=== PATIENT | female | born 1990 | race Caucasian/White ===

== ENCOUNTER 2019-11-22 20:07 | Emergency (ER) | payer BC, SELFPAY ==
[2019-11-22 20:28] VITALS: BP 106/63; PULSE 85; RESP 16; O2SAT 96; BMI 20.7
[2019-11-22 20:30] VITALS: BP 106/63; PULSE 85; RESP 16; TEMP 36.8; O2SAT 96; BMI 20.7
--- NOTE | 2019-11-22 20:40 | HMH.EDUTC ---
[facility] [place] Disposition Clinical Impression: Tension headache Heat exhaustion Qualifiers: Encounter type: initial encounter Qualified Code(s): T67.5XXA - Heat exhaustion, unspecified, initial encounter Disposition: Home, Self-Care Condition on Discharge: Good Instructions: Tension Headache, DI for Hormonal and Tension Headaches Additional Instructions: Go home and rest. Drink plenty of cool fluids. Water or Gatorade would be best. Take the medications for headache if it continues. You need to follow up with a primary care doctor. We will give you a list of ones that are taking new patients. GO TO THE ER FOR ANY WORSENING SYMPTOMS OR CONCERNS Prescriptions: Ibuprofen [Ibuprofen 600mg Tablet] 600 mg PO Q6HP PRN #30 tab PRN Reason: Mild Pain Transmission Status: Received by [facility] #[id number] Ondansetron [Zofran 4mg ODT] 4 mg PO Q8HP PRN #10 tab.rapdis PRN Reason: Nausea Transmission Status: Received by [facility] #[id number] Cetirizine HCl [Zyrtec] 10 mg PO DAILY 30 Days #30 cap Transmission Status: Received by [facility] #[id number] Referrals: Provider,Referral, MD [Primary Care Provider] - Time of Disposition: 20:49 Medical Decision Making - Medical Records Medical records reviewed: No: I reviewed the patient's medical records. - Chirag Inquiry Pt receiving controlled substance: No Vital Signs: 11/22/19 20:28 11/22/19 20:30 11/22/19 20:46 Temperature 98.3 F 98.3 F Temperature Source Oral Pulse Rate 85 Pulse Rate [Right Brachial] 85 85 Respiratory Rate 16 16 16 Blood Pressure 106/63 L Blood Pressure [Right Arm] 106/63 L 106/63 L Blood Pressure Mean [Right Arm] 77 77 Blood Pressure Source [Right Arm] Automatic Cuff Automatic Cuff Blood Pressure Position [Right Arm] Sitting Sitting 02 Sat by Pulse Oximetry 96 96 Oxygen Delivery Method Room Air Room Air [facility] [place] HPI - General Stated complaint: headache mouth tingling Time Seen by Provider: 11/22/19 20:40 Mode of Arrival: Ambulatory Source of Information: Patient Limitations: No Limitations Description of Symptoms (Recalled from Triage Doc. by RN): PATIENT STATES SHE HAS WOKEN UP NUMEROUS TIMES OVER THE PAST 2 MONTHS WITH A SEVERE HEADACHE. STATES THAT RECENTLY SHE HAS HAD NAUSEA AND SHAKINESS WITH HER HEADACHES. SHE SAYS TODAY SHE ALSO DEVELOPED TINGLING TO HER UPPER LIP. PATIENT APPEARS SHAKY AND ANXIOUS AT THIS TIME. SHE STATES SHE HAS NOT SEEN ANY ONE FOR THIS PROBLEM HEENT Symptoms (Recalled from RN notes): Yes Resp Symptoms (Recalled from RN notes): No Skin Symptoms (Recalled from RN notes): No MS Symptoms (Recalled from RN notes): No Functional Status (Recalled from RN notes): WNL - History of Present Illness Provider Complaint: She states that over the past 2 months approx., she has been having frequent headaches. At times she wakes up with a headache. She has had a headache all day today. She denies that the pain is severe. She denies that it is the worst headache of her life. She describes it as a pressure feeling across her forehead. She denies any vision changes. She was having some nausea at home, but since she has got here that has resolved. She states that before she came in today, she was also having some tingling around her upper lip. She denies any hyperventilation around this time, but she has been having more anxiety than normal. She states that she worked outside all day in her yard spreading mulch and planting walters. - Related Data Home Medications Medication Instructions Recorded Confirmed sertraline 100 mg tablet 100 mg PO DAILY tab 07/06/19 11/22/19 Etonogestrel/Ethinyl Estradiol 1 each VG ONCE 11/22/19 11/22/19 [Eluryng Vaginal Ring] Previous Rx's Medication Instructions Recorded Cetirizine HCl [Zyrtec] 10 mg PO DAILY 30 Days #30 cap 11/22/19 Ibuprofen [Ibuprofen 600mg 600 mg PO Q6HP PRN #30 tab 11/22/19 Tablet] Ondansetron [Zofran 4mg ODT
[2019-11-22 20:46] VITALS: BP 106/63; PULSE 85; RESP 16; TEMP 36.8; O2SAT 96
== END 2019-11-22 20:54 | disposition home or self-care (01) ==
PROVIDERS: Emergency Provider Nurse Practitioner Family
DX: G44.209 Tension-type headache, unspecified, not intractable (principal); T67.5XXA Heat exhaustion, unspecified, initial encounter; F17.210 Nicotine dependence, cigarettes, uncomplicated
CPT/HCPCS: 99201

== ENCOUNTER 2020-07-07 17:08 | Emergency (ER) | payer MEDICAID, SELFPAY ==
[2020-07-07 17:09] VITALS: BP 121/62; PULSE 83; RESP 14; TEMP 36.4; O2SAT 99; BMI 25.0
--- NOTE | 2020-07-07 17:34 | HMH.EDUTC ---
[facility] [place] Disposition Clinical Impression: Exposure to COVID-19 virus Disposition: Home, Self-Care Condition on Discharge: Good Instructions: DI for COVID-19 (Suspected or Confirmed ), Preventing the Spread of Coronavirus Discharge Instructions Additional Instructions: Drink plenty of fluids. Take tylenol or ibuprofen for pain or fever. Take the medications as directed. Follow up with your regular doctor. GO TO THE ER FOR ANY WORSENING SYMPTOMS Referrals: PCP,No [Primary Care Provider] - Time of Disposition: 17:37 Medical Decision Making - Medical Records Medical records reviewed: No: I reviewed the patient's medical records. - Chirag Inquiry Pt receiving controlled substance: No Vital Signs: 07/07/20 17:09 07/07/20 17:40 Temperature 97.5 F L 97.5 F L Temperature Source Oral Oral Pulse Rate 83 Pulse Rate [Right] 83 Respiratory Rate 14 14 Blood Pressure 121/62 Blood Pressure [Right Arm] 121/62 Blood Pressure Mean [Right Arm] 81 02 Sat by Pulse Oximetry 99 [facility] [place] HPI - General Stated complaint: COVID Test has been exposed Time Seen by Provider: 07/07/20 17:34 Mode of Arrival: Ambulatory Source of Information: Patient Limitations: No Limitations Description of Symptoms (Recalled from Triage Doc. by RN): pt request COVID test pt has no symptoms HEENT Symptoms (Recalled from RN notes): No Resp Symptoms (Recalled from RN notes): No Skin Symptoms (Recalled from RN notes): No MS Symptoms (Recalled from RN notes): No Functional Status (Recalled from RN notes): wnl - History of Present Illness Provider Complaint: She states that she was exposed to covid last week. She denies any symptoms so far. - Related Data Home Medications Medication Instructions Recorded Confirmed sertraline 100 mg tablet 100 mg PO DAILY tab 07/06/19 11/22/19 Etonogestrel/Ethinyl Estradiol 1 each VG ONCE 11/22/19 11/22/19 [Eluryng Vaginal Ring] Previous Rx's Medication Instructions Recorded Cetirizine HCl [Zyrtec] 10 mg PO DAILY 30 Days #30 cap 11/22/19 Ibuprofen [Ibuprofen 600mg 600 mg PO Q6HP PRN #30 tab 11/22/19 Tablet] Ondansetron [Zofran 4mg ODT] 4 mg PO Q8HP PRN #10 tab.rapdis 11/22/19 Allergies Allergy/AdvReac Type Severity Reaction Status Date / Time No Known Allergies Allergy Verified 07/07/20 17:32 - Worker's Comp Is this a Worker's Comp case?: No Is this an [facility] Worker's Comp?: No Is this a [place] Worker's Comp?: No [facility] History - Hepatitis A Screen Drug use history?: No High risk sexual behaviors?: No History of sexually transmitted infection?: No Currently employed?: No Childcare worker?: No Do you have indoor plumbing?: Yes Do you have electricity?: Yes Attestation statement:: This patient has been screened for Hepatitis A risk factors. I have reviewed the patient's past medical history: Yes Medical History: Denies:: Diabetes Mellitus Type 1, Seizures Laterality Cases: Bilateral: Tonsillectomy Other Surgeries: Yes: No Previous Surgery - Social History Smoking Status: Current every day smoker Tobacco Type: cigarettes # Packs/Day (cigarettes): 1 Alcohol Intake: never Occupational Status: other Housing: house Household Members: family ROS Obtained: Yes All systems reviewed & no additional complaints - Constitutional Constitutional: Reports system reviewed and no additional complaints, except as docu - Eyes Eyes: Reports system reviewed and no additional complaints, except as docu - ENT Ears, Nose, Mouth, and Throat: Reports system reviewed and no additional complaints, except as docu - Cardiovascular Cardiovascular: Reports system reviewed and no additional complaints, except as docu - Respiratory Respiratory: Reports system reviewed and no additional complaints, except as docu - Gastrointestinal Gastrointestingal: Reports: system reviewed and no additional complaints, except as docu Physical Exam - General General appearance:
[2020-07-07 17:40] VITALS: BP 121/62; PULSE 83; RESP 14; TEMP 36.4; O2SAT 99
== END 2020-07-07 17:46 | disposition home or self-care (01) ==
PROVIDERS: Emergency Provider Nurse Practitioner Family
DX: Z20.822 Contact with and (suspected) exposure to COVID-19 (principal); F17.210 Nicotine dependence, cigarettes, uncomplicated
CPT/HCPCS: 99202; G0463; U0003

== ENCOUNTER 2021-01-12 14:00 | Emergency (ER) | payer MEDICAID, SELFPAY ==
[2021-01-12 14:05] VITALS: BP 115/73; PULSE 81; RESP 14; TEMP 37.2; O2SAT 97; BMI 28.4
--- NOTE | 2021-01-12 14:12 | XR_ITS ---
PROCEDURE: XR FOOT LT MIN 3V CLINICAL INDICATION: PAIN COMPARISON: No exams were available for comparison FINDINGS: No fracture or dislocation. No lytic or blastic change. There is normal mineralization. The joint spaces are well-preserved. No significant degenerative/arthritic changes. No erosive changes evident. Other findings:None. IMPRESSION: No acute findings. Dictated by: Peter Munson MD 01/12/2021 14:49 Peter Munson MD in [place] 01/12/2021 14:50
--- NOTE | 2021-01-12 14:28 | HMH.EDUTC ---
[facility] [place] Disposition Clinical Impression: Foot pain Qualifiers: Laterality: left Qualified Code(s): M79.672 - Pain in left foot Disposition: Home, Self-Care Condition on Discharge: Good Instructions: DI for Foot Pain, How to Apply an Michel Wrap Additional Instructions: *weight bearing as tolerated *RICE, Rest the extremity, Ice 15-20 minutes 3-4 times daily, Compress- wear the michel wrap as discussed as much as possible to help reduce swelling and pain, Elevate the extremity when at rest *Michel wrap is for support and help control swelling, use it except in the shower. Be sure that is not to tight but not to loose either *Elevate when resting *Ibuprofen 600-800mg every 6-8 hours as needed for pain an inflammation. If need something more can take Tylenol in between doses of Ibuprofen to help Immediately follow up with your family doctor for new or worsening of symptoms, or no noticeable improvement over the next 3-5 days Referrals: Provider,Referral, MD [Primary Care Provider] - As needed Time of Disposition: 15:04 Medical Decision Making - Chirag Inquiry Pt receiving controlled substance: No Chirag was queried for this patient: No Vital Signs: 01/12/21 14:05 01/12/21 14:48 Temperature 98.9 F 98 F Temperature Source Oral Pulse Rate 81 Pulse Rate [Left] 81 Respiratory Rate 14 14 Blood Pressure 115/73 Blood Pressure [Right Arm] 115/73 Blood Pressure Mean [Right Arm] 87 02 Sat by Pulse Oximetry 97 - Radiology Data #1 Image(s): Foot/Toes Image Reviewed: Yes I have reviewed radiologist's interpretation Preliminary Findings: No Fracture Seen [facility] [place] HPI - General Stated complaint: left foot swollen and pain Time Seen by Provider: 01/12/21 14:28 Mode of Arrival: Ambulatory Source of Information: Patient Limitations: No Limitations Description of Symptoms (Recalled from Triage Doc. by RN): pt c/o of pain and swelling in her L foot. this has been ongoing for 2.5 weeks pt doesn't recall injuring it. HEENT Symptoms (Recalled from RN notes): No Resp Symptoms (Recalled from RN notes): No Skin Symptoms (Recalled from RN notes): No MS Symptoms (Recalled from RN notes): Yes (L foot pain) Functional Status (Recalled from RN notes): na - History of Present Illness Provider Complaint: Patient states that for the last couple of weeks she has been having pain around the base of her last three toes on her left foot States that she doesn[t recall hurting it but when she stands on it for a long times her foot will swell and be sore States that today it was hurting some so she came in to get checked - Related Data Home Medications Medication Instructions Recorded Confirmed sertraline 100 mg tablet 100 mg PO DAILY tab 07/06/19 11/22/19 Etonogestrel/Ethinyl Estradiol 1 each VG ONCE 11/22/19 11/22/19 [Eluryng Vaginal Ring] Previous Rx's Medication Instructions Recorded Cetirizine HCl [Zyrtec] 10 mg PO DAILY 30 Days #30 cap 11/22/19 Ibuprofen [Ibuprofen 600mg 600 mg PO Q6HP PRN #30 tab 11/22/19 Tablet] Ondansetron [Zofran 4mg ODT] 4 mg PO Q8HP PRN #10 tab.rapdis 11/22/19 Allergies Allergy/AdvReac Type Severity Reaction Status Date / Time No Known Allergies Allergy Verified 01/12/21 14:15 - Worker's Comp Is this a Worker's Comp case?: No [facility] History - Hepatitis A Screen Drug use history?: No High risk sexual behaviors?: No History of sexually transmitted infection?: No Currently employed?: No Childcare worker?: No Do you have indoor plumbing?: Yes Do you have electricity?: Yes Attestation statement:: This patient has been screened for Hepatitis A risk factors. I have reviewed the patient's past medical history: Yes Medical History: Denies:: Diabetes Mellitus Type 1, Seizures Laterality Cases: Bilateral: Tonsillectomy Other Surgeries: Yes: No Previous Surgery - Social History Smoking Status: Current every day smoker Tobacco Type: cigarettes # Packs/Day (cigarettes): 1
[2021-01-12 14:48] VITALS: BP 115/73; PULSE 81; RESP 14; TEMP 36.6
[2021-01-12 15:11] VITALS: BP 115/73; PULSE 98; RESP 22; TEMP 36.9; O2SAT 99
== END 2021-01-12 15:11 | disposition home or self-care (01) ==
PROVIDERS: Emergency Provider Nurse Practitioner
DX: M79.672 Pain in left foot (principal); F17.210 Nicotine dependence, cigarettes, uncomplicated
CPT/HCPCS: 73630; 99202; G0463

== ENCOUNTER 2021-01-21 14:01 | Emergency (ER) | payer MEDICAID, SELFPAY ==
[2021-01-21 15:02] VITALS: BP 126/58; PULSE 63; RESP 16; TEMP 36.6; O2SAT 98; BMI 28.4
--- NOTE | 2021-01-21 15:07 | HMH.EDUTC ---
[facility] [place] Disposition Clinical Impression: Foot pain Qualifiers: Laterality: left Qualified Code(s): M79.672 - Pain in left foot Disposition: Home, Self-Care Condition on Discharge: Good Instructions: DI for Foot Pain Additional Instructions: continue to wear ivett wrap Soaks in Warm water and epson salt may help with pain and swelling Follow up with Podiatry Clinic for further evaluation and examination to see why you have continued to have pain and swelling Return if needed Straight to ER if any life threatening symptoms Referrals: Provider,Referral, MD [Primary Care Provider] - As needed Jennifer Milton DPM [Staff Physician] - Disha Casey APRN [Nurse Practitioner] - Time of Disposition: 15:27 Medical Decision Making - Chirag Inquiry Pt receiving controlled substance: No Chirag was queried for this patient: No Vital Signs: 01/21/21 15:02 Temperature 97.9 F Temperature Source Oral Pulse Rate [Right] 63 Respiratory Rate 16 Blood Pressure [Left Arm] 126/58 L Blood Pressure Mean [Left Arm] 80 Blood Pressure Source [Left Arm] Automatic Cuff Blood Pressure Position [Left Arm] Sitting 02 Sat by Pulse Oximetry 98 Oxygen Delivery Method Room Air - Lab Data Lab Results 01/21/21 14:50: Uric Acid 4.7 [facility] [place] HPI - General Stated complaint: lt foot pain/swelling Time Seen by Provider: 01/21/21 15:07 Mode of Arrival: Ambulatory Source of Information: Patient Limitations: No Limitations Description of Symptoms (Recalled from Triage Doc. by RN): left foot pain wants tested for gout HEENT Symptoms (Recalled from RN notes): No Resp Symptoms (Recalled from RN notes): No Skin Symptoms (Recalled from RN notes): No MS Symptoms (Recalled from RN notes): Yes (left foot pain) Functional Status (Recalled from RN notes): na - History of Present Illness Provider Complaint: Patient states that she has been having pain and swelling in her left foot for a couple weeks States pain is moreso up around base of toes and denies known injury. States that she was seen about a week ago and had xray and they wanted to check her for gout and she wouldnt let them but she is still having pain and swelling so she came back in wanted to get her uric acid tested - Related Data Home Medications Medication Instructions Recorded Confirmed sertraline 100 mg tablet 100 mg PO DAILY tab 07/06/19 11/22/19 Etonogestrel/Ethinyl Estradiol 1 each VG ONCE 11/22/19 11/22/19 [Eluryng Vaginal Ring] Previous Rx's Medication Instructions Recorded Cetirizine HCl [Zyrtec] 10 mg PO DAILY 30 Days #30 cap 11/22/19 Ibuprofen [Ibuprofen 600mg 600 mg PO Q6HP PRN #30 tab 11/22/19 Tablet] Ondansetron [Zofran 4mg ODT] 4 mg PO Q8HP PRN #10 tab.rapdis 11/22/19 Allergies Allergy/AdvReac Type Severity Reaction Status Date / Time No Known Allergies Allergy Verified 01/12/21 14:15 - Worker's Comp Is this a Worker's Comp case?: No [facility] History - Hepatitis A Screen Drug use history?: No High risk sexual behaviors?: No History of sexually transmitted infection?: No Currently employed?: No Childcare worker?: No Do you have indoor plumbing?: Yes Do you have electricity?: Yes Attestation statement:: This patient has been screened for Hepatitis A risk factors. I have reviewed the patient's past medical history: Yes Medical History: Denies:: Diabetes Mellitus Type 1, Seizures Laterality Cases: Bilateral: Tonsillectomy Other Surgeries: Yes: No Previous Surgery - Social History Smoking Status: Current every day smoker Tobacco Type: cigarettes # Packs/Day (cigarettes): 1 Alcohol Intake: never Occupational Status: other Housing: house Household Members: family ROS Obtained: Yes All systems reviewed & no additional complaints, Yes Systems reviewed as appropriate & no additional complaints - Constitutional Constitutional: Reports system reviewed and no additional complaints, except as docu, Denies body ache, Denies chills
[2021-01-21 15:11] LABS: Uric Acid 4.7 mg/dl (2.5-6.2)
[2021-01-21 16:07] VITALS: BP 124/60; PULSE 60; RESP 16; TEMP 36.9; O2SAT 98
== END 2021-01-21 16:07 | disposition home or self-care (01) ==
PROVIDERS: Emergency Provider Nurse Practitioner
DX: M79.672 Pain in left foot (principal); M79.89 Other specified soft tissue disorders
CPT/HCPCS: 84550; 99202; G0463

== ENCOUNTER 2021-03-04 09:32 | Emergency (ER) | payer MEDICAID, SELFPAY ==
[2021-03-04 09:33] VITALS: BP 112/65; PULSE 88; RESP 19; TEMP 36.8; O2SAT 99; BMI 28.4
--- NOTE | 2021-03-04 10:28 | HMH.EDUTC ---
[facility] [place] Impression: Viral syndrome, Exposure to COVID-19 virus, Bronchitis Disposition: Home, Self-Care Condition on Discharge: Good Instructions: DI for Viral Syndrome, Preventing the Spread of Coronavirus Discharge Instructions Additional Instructions: Drink plenty of fluids. Take tylenol for pain or fever. Return if you begin to have difficulty breathing. Follow up with your regular doctor. GO TO THE ER FOR ANY WORSENING SYMPTOMS Quarantine until you know the results of your covid-19 test. If it is positive, the health department should call you and give you further instructions about your length of Quarantine and other things. Notify your school or workplace of your results and follow their instructions regarding return to work/school. Prescriptions: Benzonatate [Tessalon Perle 100mg Cap] 100 mg PO TIDP PRN #30 cap PRN Reason: Cough Transmission Status: Received by [facility] Azithromycin [Z-Suresh 250mg Tab*] 250 mg PO UD DOSE PK #6 tab Transmission Status: Received by [facility] Referrals: Jennifer Milton DPM [Primary Care Provider] - Time of Disposition: 11:03 Medical Decision Making - Medical Records Medical records reviewed: No: I reviewed the patient's medical records. - Chirag Inquiry Pt receiving controlled substance: No Vital Signs: 03/04/21 09:33 03/04/21 11:05 Temperature 98.2 F 98.2 F Temperature Source Temporal Artery Scan Pulse Rate 88 Pulse Rate [Left Radial] 88 Respiratory Rate 19 19 Blood Pressure 112/65 Blood Pressure [Right Arm] 112/65 Blood Pressure Mean [Right Arm] 80 Blood Pressure Source [Right Arm] Automatic Cuff Blood Pressure Position [Right Arm] Sitting 02 Sat by Pulse Oximetry 99 Oxygen Delivery Method Room Air Orders (Tests/Meds): ORDERS Category Date Time Status Covid-19 Nasal PCR ([facility]) Routine Lab 03/04/21 10:16 [place] [facility] [place] - General Stated complaint: cough, headache, dominic, body ache Time Seen by Provider: 03/04/21 10:28 - History of Present Illness Provider Complaint: She states that for the past 2 days she has been getting congested and chest tightness. She denies any fever or chills. Her son is sick with similar symptoms. - Related Data Home Medications Medication Instructions Recorded Confirmed sertraline 100 mg tablet 100 mg PO DAILY tab 07/06/19 01/26/21 Etonogestrel/Ethinyl Estradiol 1 each VG ONCE 11/22/19 01/26/21 [Eluryng Vaginal Ring] Previous Rx's Medication Instructions Recorded meloxicam 7.5 mg tablet 7.5 mg PO DAILY #30 tab 01/26/21 Azithromycin [Z-Suresh 250mg Tab*] 250 mg PO UD DOSE PK #6 tab 03/04/21 Benzonatate [Tessalon Perle 100mg 100 mg PO TIDP PRN #30 cap 03/04/21 Cap] Allergies Allergy/AdvReac Type Severity Reaction Status Date / Time No Known Allergies Allergy Verified 01/26/21 11:39 [facility] History - Hepatitis A Screen Attestation statement:: This patient has been screened for Hepatitis A risk factors. I have reviewed the patient's past medical history: Yes Medical History: Denies:: Diabetes Mellitus Type 1, Seizures Laterality Cases: Bilateral: Tonsillectomy Other Surgeries: Yes: No Previous Surgery, Tubal Ligation - Social History Smoking Status: Current every day smoker Tobacco Type: cigarettes # Packs/Day (cigarettes): 1 Alcohol Intake: never Occupational Status: other Housing: house Household Members: family ROS Obtained: Yes All systems reviewed & no additional complaints - Constitutional Constitutional: Denies chills, Denies fever(s), Reports poor appetite, Reports malaise - Eyes Eyes: Denies eye discharge - ENT Ears, Nose, Mouth, and Throat: Denies dizziness, Denies otalgia, Reports sore throat - Cardiovascular Cardiovascular: Denies chest pain - Respiratory Respiratory: Reports chest congestion, Reports cough, Denies dyspnea, Denies stridor, Denies wheezing Physical Exam
[2021-03-04 11:05] VITALS: BP 112/65; PULSE 88; RESP 19; TEMP 36.8; O2SAT 99
== END 2021-03-04 11:15 | disposition home or self-care (01) ==
PROVIDERS: Emergency Provider Nurse Practitioner Family; PCP Podiatrist
DX: U07.1 COVID-19 (principal); J20.9 Acute bronchitis, unspecified
CPT/HCPCS: 99202; G0463; U0003

== ENCOUNTER 2024-02-01 16:14 | Outpatient (CLI) | payer BC, SELFPAY ==
--- NOTE | 2024-02-01 16:17 | MM_ITS ---
PROCEDURE INFORMATION: Exam: MG Bilateral Screening 3D Mammography Exam date and time: 02/01/2024 4:09 PM Age: 33 years old Clinical indication: Screening examination TECHNIQUE: Imaging protocol: Bilateral Screening tomosynthesis and 2D mammography including computer-aided detection (CAD) when performed. COMPARISON: No relevant prior studies available. FINDINGS: MAMMOGRAPHY: Breast composition: There are scattered areas of fibroglandular density. Mass: None. Architectural distortion: None. Calcifications: No suspicious calcifications. Asymmetric density: None. Skin thickening: None. Axillary adenopathy: None. IMPRESSION: No mammographic evidence of malignancy. Annual screening is recommended unless otherwise clinically indicated. ASSESSMENT: BI-RADS Category 1: Negative
== END 2024-02-01 23:59 | disposition home or self-care (01) ==
LOC: RAD 16:15
PROVIDERS: PCP Nurse Practitioner Family; Visit Provider Obstetrics & Gynecology
DX: Z12.31 Encounter for screening mammogram for malignant neoplasm of breast (principal); Z80.3 Family history of malignant neoplasm of breast
CPT/HCPCS: 77063; 77067

== ENCOUNTER 2025-01-20 10:50 | Outpatient (CLI) | payer BC, MEDICAID, SELFPAY ==
--- OUTSIDE RECORDS SUMMARY | 2025-01-12 13:40 | XMS_ITS | Encounter Summary ---
Author Organization Healthcare Address [address] [place] [address] Care Team Providers Care Photographic Colorist Name Role Phone Lilliana Juarez APRN Primary Care Provider [phone] Reason for Referral * Imaging (Routine) - Authorized Specialty Diagnoses / Procedures Referred By Prabhjot t Referred To Contact Diagnoses Left thyroid nodule Procedures US Thyroid [place] [address] Phone: tel: fax: Referral ID Status Reason Start Date Expiration Date V isits Requested Visits Authorized [id number] Authorized 01/12/2025 07/14/2026 1 1 Reason for Visit * Reason Comments Annual Exam Encounter Details Date Type Department Care Team (Late st Contact Info) Description 01/12/2025 1:40 PM EDT Office Visit [facility] [address] [place] [address] Lilliana Juarez APRN [address] [place] [address] Healthcare maintenance (Primary Dx); Left thyroid nodule; Generalized anxiety disorder; Acute stress reaction Social History Tobacco Use Types Packs/Day Years Used Date Smoking Tobacco: Every Day Cigarettes 1 10.6 Started: 2014 Smokeless Tobacco: Never Tobacco Cessation:Ready to Q uit: No; Counseling Given: Yes Alcohol Use Standard Drinks/Week Comments Never 0 (1 standard drink = 0.6 oz pur e alcohol) Social Connection and Isolation Panel Answer Date Recorded In a typical week, how many times do you talk on the phone with family, friends, or neighbors? More than three times a week 01/10/2024 How often do you get togethe r with friends or relatives? Once a week 01/10/2024 How often do you attend chur ch or latter day services? Never 01/10/2024 Do you belong to any clubs o r organizations such as religious groups, unions, fraternal or athletic groups, or school groups? No 01/10/2024 How often do you attend meet ings of the clubs or organizations you belong to? Never 01/10/2024 Are you , , di vorced, , never , or living with a partner? 01/10/2024 AUDIT-C Answer Date Recorded Q1: How often do you have a drink containing alcohol? Never 01/10/2024 Q2: How many drinks containi ng alcohol do you have on a typical day when you are drinking? Patient does not drink Q3: How often do you have si x or more drinks on one occasion? Never 01/10/2024 PHQ-2 Answer Date Recorded Patient Health Questionnaire-2 Score 4 01/12/2025 [facility] - Occupational Stress Questionnaire Answer Date Recorded Do you feel stress - tense, restless, nervous, or anxious, or unable to sleep at night because your mind is troubled all the time - these days? Not at all 01/10/2024 Exercise Vital Sign Answer Date Recorde d On average, how many days pe r week do you engage in moderate to strenuous exercise (like a brisk walk)? 5 days 01/10/2024 On average, how many minutes do you engage in exercise at this level? 60 min 01/10/2024 Housing Stability Vital Sign Answer Jas e Recorded In the last 12 months, was t here a time when you were not able to pay the mortgage or rent on time? No 01/10/2024 In the last 12 months, how many places have you lived? 1 01/10/2024 In the last 12 months, was t here a time when you did not have a steady place to sleep or slept in a jail (including now)? No 01/10/2024 PHQ-9 Answer Date Recorded Patient Health Questionnaire-9 Score 19 01/12/2025 Housing Stability Vital Sign Answer Jas e Recorded In the last 12 months, was t here a time when you were not able to pay the mortgage or rent on time? No 10/14/2024 In the past 12 months, how m any times have you moved where you were living? 0 10/14/2024 At any time in the past 12 m [facility], were you homeless or living in a jail (including now)? No 10/14/2024 Humiliation, Afraid, Rape, and Kick questionnair e Answer Date Recorded Within the last year, have y ou been afraid of your partner or ex-partner? No 01/12/2025 Within the last year, have y ou been humiliated or emotionally abused in other ways by your partner or ex-partner? No Within the last year, have y ou been kicked, hit, slapped, or otherwise physically hurt by your partner or ex-partner? No 01/12/2025 Within the last year, have y ou been raped or forced to have any kind of sexual activity by your partner or ex-partner? No 01/12/2025 Hunger Vital Sign Answer Date Recorded Within the past 12 months, y ou worried that your food would run out before you got the money to buy more. Never true 01/13/20 25 Within the past 12 months, t he food you bought just didn't last and you didn't have money to get more. Never true 01/12/2025 PRAPARE - Transportation Answer Date Re corded In the past 12 months, has l ack of transportation kept you from medical appointments or from getting medications? No 12/30 In the past 12 months, has l ack of transportation kept you from meetings, work, or from getting things needed for daily living? No 01/12/2025 Housing Stability Vital Sign Answer Jas e Recorded In the last 12 months, was t here a time when you were not able to pay the mortgage or rent on time? No 01/12/2025 In the past 12 months, how m any times have you moved where you were living? 0 01/12/2025 At any time in the past 12 m [facility], were you homeless or living in a jail (including now)? No 01/12/2025 Safety and Environment Answer Date Benito rded Do you worry that your child may have been physically abused? Patient declined 01/10/2024 Do you worry that your child may have been sexually abused? Patient declined 01/10/2024 Are there any guns kept in o r around your home or where your child spends time? Patient declined 01/10/2024 Guns Unloaded or Locked Away Not on file 05/2024 Utilities Answer Date Recorded In the past 12 months has [employer], gas, oil, or water company threatened to shut off services in your home? No 01/12/2025 PHQ-2A Answer Date Recorded Patient Health Questionnaire-2 Score 0 10/18/2022 Comments No Sex and Gender Information Value Date Recorded Sex Assigned at Not on file Legal Sex Female 8:20 PM EDT Gender Identity Female 01/28/2024 1:03 PM EDT Sexual Orientation Not on file documented as of this encounter Last Filed Vital Signs Vital Sign Reading Time Taken Comments Blood Pressure 122/82 01/12/2025 1:45 PM EDT Pulse 75 01/12/2025 1:45 PM EDT Temperature - - Respiratory Rate 18 01/12/2025 1:45 PM EDT Oxygen Saturation 97% 01/12/2025 1:45 PM EDT Inhaled Oxygen Concentration - - Weight 70.8 kg (156 lb 1.6 oz) 01/12/2025 1:45 P M EDT Height 172.7 cm (5' 8 ) 01/12/2025 1:45 PM EDT Body Mass Index 23.73 01/12/2025 1:45 PM EDT documented in this encounter Functional Status * Over the past 2 weeks, how often have you been bothered by any of the following problems? Question Answer Date of Assessment Author Little interest or pleasure in doing things More than half the days 01/12/2025 1:48 PM Lory Merrill Feeling down, depressed, or hopeless More than half the days 01/12/2025 1:48 PM Lory Merrill Patient Health Questionnaire-2 Score 4 01/12/2025 1:48 PM Lory Merrill * Question Answer Date of Assessment Author Trouble falling or staying asleep, or sleeping too much More than half the days 01/12/2025 1:48 PM Lory Merrill Feeling tired or having little energy More than half the days 01/12/2025 1:48 PM Lory Merrill Poor appetite or overeating Nearly every day 01/12/2025 1:48 PM Lory Merrill Feeling bad about yourself - or that you are a failure or have let yourself or your family down Nearly every day 01/12/2025 1:48 PM Lory Merrill Trouble concentrating on things, such as reading the newspaper or watching television Nearly every day 01/12/2025 1:48 PM Lory Merrill Moving or speaking so slowly that other people could have noticed? Or the opposite - being so fidgety or restless that you have been moving around a lot more than usual. More than half the days 01/12/2025 1:48 PM Lory Merrill Thoughts that you would be better off or hurting yourself in some way Not at all 01/12/2025 1:48 PM Lory Merrill Patient Health Questionnaire-9 Score 19 01/12/2025 1:48 PM Lory Merrill * Calculated C-SSRS Risk Score (Lifetime/Recent) Answer Date of Assessment Author No Risk Indicated 01/12/2025 1:46 PM Lory Merrill * If you checked off any problems on this questionnaire so far, Question Answer Date of Assessment Author How difficult have these problems made it for you to do your work, take care of things at home, or get along with other people? Very difficult 01/12/2025 1:48 PM Lory Merrill * How difficult have these problems made it for you to do your work, take care of things at home, or get along with other people? Answer Date of Assessment Author Very difficult 01/12/2025 1:48 PM EDT Lory Plasencia * Question Answer Date of Assessment Author 1. Wish to be (Past 1 Month) No 025 1:46 PM EDT Lory Plasencia 2. Non-Specific Active Suici elmer Thoughts (Past 1 Month) No 01/12/2025 1:46 PM EDT Jose Plasencia 6. Suicidal Behavior (Lifetime) No 5 1:46 PM EDT Lory Plasencia documented as of this encounter Miscellaneous Notes * Progress Notes - Lilliana Juarez, [facility] - 01/12/2025 1:40 PM EDT Subjective Patient ID: Anabelle Landaverde is a 34 y.o. female. Chief Complaint Patient presents with Annual Exam 34 year old female here for annual health maintenance and f/u on chronic conditions. Denies vision changes. Has braces and sees dentist regularly. Reports no appetite and hardly eating. Has been stressed. Her has left her for another woman and he is not helping with the kids. Has a burning anxious feeling her chest and her mind will not stop. Recently saw another provider in the clinic and they increased the sertraline and added buspar. Still feeling really anxious. Did not think the buspar was helpful so stopped taking it. Does still take the sertraline but stillfeeling really anxious. Has lost 38 pounds in 3 months. Does not want something that causes drowsiness. Denies financial struggle. Going to court Sunday for child support. Talks with family who are supportive. The following portions of the chart were reviewed this encounter and updated as appropriate: Tobacco Allergies Meds Problems Med Hx Surg Hx Fam Hx Current Medications[1] Objective Blood pressure 122/82, pulse 75, resp. rate 18, height 1.727 m (5' 8 ), weight 70.8 kg (156 lb 1.6 oz), SpO2 97%. Body mass index is 23.73 kg/m??. Physical Exam Vitals reviewed. Constitutional: Appearance: Normal appearance. HENT: Head: Normocephalic. Right Ear: Tympanic membrane, ear canal and external ear normal. Left Ear: Tympanic membrane, ear canal and external ear normal. Nose: Nose normal. Mouth/Throat: Mouth: Mucous membranes are moist. Pharynx: Oropharynx is clear. Eyes: Conjunctiva/sclera: Conjunctivae normal. Pupils: Pupils are equal, round, and reactive to light. Neck: Thyroid: Thyroid mass present. No thyroid tenderness. Cardiovascular: Rate and Rhythm: Normal rate and regular rhythm. Pulses: Normal pulses. Heart sounds: Normal heart sounds. Pulmonary: Effort: Pulmonary effort is normal. Breath sounds: Normal breath sounds. Musculoskeletal: General: Normal range of motion. Cervical back: Normal range of motion. Skin: General: Skin is warm and dry. Neurological: Mental Status: She is alert and oriented to person, place, and time. Psychiatric: Mood and Affect: Mood normal. Behavior: Behavior normal. Thought Content: Thought content normal. Judgment: Judgment normal. Assessment/Plan Diagnoses and all orders for this visit: Healthcare maintenance - Thyroid Stimulating Hormone, Plasma - Free T4, Plasma - Comprehensive Metabolic Panel, Plasma - CBC and Differential - Lipid Profile, Plasma - Hemoglobin A1c - Vitamin D 25 Hydroxy - Vitamin B12, Serum Left thyroid nodule - US Thyroid; Future Generalized anxiety disorder - propranolol (Inderal) 10 MG tablet; Take 1 tablet by mouth 3 times a day. - Sertraline HCl 200 MG capsule; Take 200 mg by mouth daily. Acute stress reaction Age appropriate counseling and anticipatory guidance including safety, health, nutrition, development, immunizations, and injury prevention as well as risk factor reduction discussed with patient The patient received dietary education because they have an above normal BMI. and The patient received exercise education because they have an above normal BMI. Will get US of thyroid to evaluate that left side. Discussed different options for her anxiety. Highly recommend counseling and she will think about it Trial higher dose of sertraline and new propranolol Discussed new med risks and benefits and possible side effects. F/u one month Note to patient: The 21st Century Cures Act makes medical notes like these available to patients inthe interest of transparency. However, be advised this is a medical document. It is intended as peer to peer communication. It is written in medical language and may contain abbreviations or verbiagethat are unfamiliar. It may appear blunt or direct. Medical documents are intended to carry relevant information, facts as evident, and the clinical opinion of the practitioner. [1] Current Outpatient Medications: fluticasone (Flonase) 50 MCG/ACT nasal spray, Administer 1 spray into each nostril 1 (one) time each day. Shake gently. Before first use, prime pump. After use, clean tip and replace cap., Disp: 16 g, Rfl: 12 propranolol (Inderal) 10 MG tablet, Take 1 tablet by mouth 3 times a day., Disp: 60 tablet, Rfl: 5 Sertraline HCl 200 MG capsule, Take 200 mg by mouth daily., Disp: 90 capsule, Rfl: 3 documented in this encounter Plan of Treatment Upcoming Encounters Date Type Department Care Team (Late st Contact Info) Description 01/29/2025 1:45 PM EDT Office Visit Obstetrics & Gynecology [address] [place] [address] Canelo Oliva MD [address] [place] [address] 02/10/2025 8:20 AM EDT Office Visit [facility] [address] [place] [address] Lilliana Juarez APRN [address] [place] [address] 02/23/2025 8:45 AM EDT Office Visit Obstetrics & Gynecology [address] [place] [address] Canelo Oliva MD [address] [place] [address] Scheduled Orders Name Type Priority Associated Diagnoses Orde r Schedule US Thyroid Imaging Routine Left thyroid nodule Expected: 01/12/2025 (Approximate), Expires: 07/16/2026 documented as of this encounter Procedures Procedure Name Priority Date/Time Associated Diagnosis Comments VITAMIN D 25 HYDROXY Routine 01/12/2025 2:21 PM EDT Healthcare maintenance CBC WITH AUTO DIFFERENTIAL Routine 01/12/2025 2:21 PM EDT Healthcare maintenance TSH Routine 01/12/2025 2:21 PM EDT Healthcare maintenance FREE T4, PLASMA Routine 01/12/2025 2:21 PM EDT Healthcare maintenance HEMOGLOBIN A1C Routine 01/12/2025 2:21 PM EDT Healthcare maintenance VITAMIN B12, SERUM Routine 01/12/2025 2: 21 PM EDT Healthcare maintenance LIPID PROFILE, PLASMA Routine 01/12/2025 2:21 PM EDT Healthcare maintenance COMPREHENSIVE METABOLIC PANEL, PLASMA Routine 01/12/2025 2:21 PM EDT Healthcare maintenance documented in this encounter Results * Vitamin B12, Serum (01/12/2025 2:21 PM EDT) Vitamin B12, Serum 367 210 - 1,033 pg/mL 01/12/2025 6:32 PM EDT [facility] Blood Venous blood specimen / Unknown Venipuncture / Unknown 01/12/2025 2:21 PM EDT 01/12/2025 2:21 PM EDT us Lilliana Juarez APRN LAB BLOOD ORDERABLES Final Re sult [facility] [address] [place] [address] * Vitamin D 25 Hydroxy (01/12/2025 2:21 PM EDT) Vitamin D 25 Hydroxy 58.1 20.0 - 80.0 ng/mL 01/12/2025 7:31 PM EDT [facility] Blood Venous blood specimen / Unknown Venipuncture / Unknown 01/12/2025 2:21 PM EDT 01/12/2025 2:21 PM EDT Narrative [facility] - 01/12/2025 7:31 PM EDT Testing performed on [employer], standardized against NIST SRM 2972. When testing samples from patients whose predominant form of vitamin D is vitamin D2, such as patients receiving vitamin D2 supplementation, results that are subtherapeutic should be confirmed with another method, such as LC-MS/MS, before being used for patient management. Vitamin D, 25-Hydroxy reference range, age 18 years and up: Deficiency: <12 ng/mL Insufficiency: 12 to 19 ng/mL Sufficiency: 20 to 80 ng/mL Possible toxicity: >100 ng/mL Lilliana Aranza Larry [facility] LAB BLOOD ORDERABLES Final Re sult Performing Organization Address [facility] Co de Phone Number [facility] [address] [place] [address] * Hemoglobin A1c (01/12/2025 2:21 PM EDT) Hemoglobin A1c 5.0 <5.7 % 01/12/2025 8:54 PM EDT [facility] Blood Venous blood specimen / Unknown Venipuncture / Unknown 01/12/2025 2:21 PM EDT 01/12/2025 2:21 PM EDT Narrative [facility] - 01/12/2025 8:54 PM EDT HA1C Interpretive Data: Diagnosis of Diabetes: Diabetic > or = 6.5% Pre-diabetic 5.7 to 6.4% Non-diabetic < or = 5.6% Glycemic Targets for Type I and Type II Diabetics: Non- Adults <7.0% Adults <6.0% Children and Adolescents <7.5% Source: [place] [employer]. Standards of medical care in diabetes,2017. Diabetes Care.2017:40 (suppl 1):S1-S135. us Lilliana Cobian [place] [facility] LAB BLOOD ORDERABLES Final Re sult Performing Organization Address [facility] Co de Phone Number [facility] [address] [place] [address] * (ABNORMAL) Lipid Profile, Plasma (01/12/2025 2:21 PM EDT) Cholesterol, Plasma 114 <200 mg/dL 01/12/2025 6:24 PM EDT [facility] Comment: Cholesterol Reference Range (age >17 years): Desirable <200 mg/dL Borderline 200 to 239 mg/dL Undesirable >239 mg/dL HDL 21(L) >=50 mg/dL 01/12/2025 6:24 PM EDT [facility] Comment: HDL Cholesterol Reference Ranges (age >17 years): Female, acceptable > or = 50 mg/dL Male, acceptable > or = 40 mg/dL Triglycerides, Plasma 105 <150 mg/dL 01/12/2025 6:24 PM EDT [facility] Comment: Triglyceride Reference Range (age >17 years): Desirable: <150 mg/dL Borderline high: 150 to 199 mg/dL High: 200 to 499 mg/dL Very high: >499 mg/dL Increased risk of pancreatitis: >1000 mg/dL Cholesterol/HDL Ratio 5 01/12/2025 6:24 PM EDT [facility] LDL, Calculated 73 <100 mg/dL 6:24 PM EDT [facility] Comment: LDL Cholesterol Reference Range (age >17 years): Optimal: <100 mg/dL Near or above optimal: 100 - 129 mg/dL Borderline high: 130 - 159 mg/dL High: 160 - 189 mg/dL Very high: >189 mg/dL LDL Cholesterol Reference Range (age <18 years): Desirable: <110 mg/dL Borderline: 110 - 129 mg/dL Undesirable: >130 mg/dL LDL Cholesterol is calculated using the Kelley/NIH equation. Fasting greater than or equal to 12 hours? Yes 01/12/2025 6:24 PM EDT [facility] Blood Venous blood specimen / Unknown Venipuncture / Unknown 01/12/2025 2:21 PM EDT 01/12/2025 2:21 PM EDT us Lilliana Juarez [facility] LAB BLOOD ORDERABLES Final Re sult [facility] [address] [place] [address] * (ABNORMAL) CBC and Differential (01/12/2025 2:21 PM EDT) WBC Count 7.42 3.70 - 10.30 10*3/uL LAB HEMATOLOGY METHOD 01/12/2025 6:11 PM EDT [facility] RBC Count 4.32 3.90 - 5.20 10*6/uL LAB HEMATOLOGY METHOD 01/12/2025 6:11 PM EDT [facility] HGB 13.9 11.2 - 15.7 g/dL LAB HEMATOLOGY METHOD 01/12/2025 6:11 PM EDT [facility] HCT 41.5 34.0 - 45.0 % LAB HEMATOLOGY METHOD 01/12/2025 6:11 PM EDT [facility] Platelet Count 241 155 - 369 10*3/uL LAB HEMATOLOGY METHOD 01/12/2025 6:11 PM EDT [facility] MCV 96 79 - 98 fL LAB HEMATOLOGY METHOD 01/12/2025 6:11 PM EDT [facility] MCH 32.2(H) 26.0 - 32.0 pg LAB HEMATOLOGY METHOD 01/12/2025 6:11 PM EDT [facility] MCHC 33.5 30.7 - 35.5 g/dL LAB HEMATOLOGY METHOD 01/12/2025 6:11 PM EDT [facility] RDW 12.9 11.5 - 14.5 % LAB HEMATOLOGY METHOD 01/12/2025 6:11 PM EDT [facility] MPV 11.3 8.8 - 12.5 fL LAB HEMATOLOGY METHOD 01/12/2025 6:11 PM EDT [facility] nRBC 0.0 <=0.0 per 100 WBCs LAB HEMATOLOGY METHOD 01/12/2025 6:11 PM EDT [facility] Differential Type Automated LAB HEMATOLOGY METHOD 01/12/2025 6:11 PM EDT [facility] Neutrophils % 63 % LAB HEMATOLOGY METHOD 01/12/2025 6:11 PM EDT [facility] Lymphocytes % 28 % LAB HEMATOLOGY METHOD 01/12/2025 6:11 PM EDT [facility] Monocytes % 7 % LAB HEMATOLOGY METHOD 01/12/2025 6:11 PM EDT [facility] Eosinophils % 1 % LAB HEMATOLOGY METHOD 01/12/2025 6:11 PM EDT [facility] Basophils % 1 % LAB HEMATOLOGY METHOD 01/12/2025 6:11 PM EDT [facility] Immature Granulocytes % 0 % LAB HEMATOLOGY METHOD 01/12/2025 6:11 PM EDT [facility] Neutrophils Absolute 4.67 1.60 - 6.10 10*3/uL LAB HEMATOLOGY METHOD 01/12/2025 6:11 PM EDT [facility] Lymphocytes Absolute 2.05 1.20 - 3.90 10*3/uL LAB HEMATOLOGY METHOD 01/12/2025 6:11 PM EDT [facility] Monocytes Absolute 0.54 0.30 - 0.90 10*3/uL LAB HEMATOLOGY METHOD 01/12/2025 6:11 PM EDT [facility] Eosinophils Absolute 0.09 0.00 - 0.50 10*3/uL LAB HEMATOLOGY METHOD 01/12/2025 6:11 PM EDT [facility] Basophils Absolute 0.05 0.00 - 0.10 10*3/uL LAB HEMATOLOGY METHOD 01/12/2025 6:11 PM EDT [facility] Immature Granulocytes Absolute 0.02 0.00 - 0.06 10*3/uL LAB HEMATOLOGY METHOD 01/12/2025 6:11 PM EDT [facility] Blood Venous blood specimen / Unknown Venipuncture / Unknown 01/12/2025 2:21 PM EDT 01/12/2025 2:21 PM EDT Narrative [facility] - 01/12/2025 6:11 PM EDT Therapeutic decision making should be based on absolute values, rather than percentages. us Lilliana Juarez APRN LAB BLOOD ORDERABLES Final Re sult [facility] [address] [place] [address] * Comprehensive Metabolic Panel, Plasma (01/12/2025 2:21 PM EDT) Glucose, Plasma 88 74 - 99 mg/dL 01/12/2025 6:24 PM EDT [facility] BUN, Plasma 7 7 - 21 mg/dL 01/12/2025 6:24 PM EDT [facility] Creatinine, Plasma 0.68 0.60 - 1.10 mg/dL 01/12/2025 6:24 PM EDT [facility] BUN/Creatinine Ratio 10 01/12/2025 6:24 PM EDT [facility] Sodium, Plasma 137 136 - 145 mmol/L 01/12/2025 6:24 PM EDT [facility] Potassium, Plasma 3.6 3.6 - 4.9 mmol/L 01/12/2025 6:24 PM EDT [facility] Chloride, Plasma 103 97 - 107 mmol/L 01/12/2025 6:24 PM EDT [facility] CO2, Plasma 24 22 - 29 mmol/L 01/12/2025 6:24 PM EDT [facility] Anion Gap 10 6 - 16 mmol/L 01/12/2025 6:24 PM EDT [facility] Total Calcium, Plasma 9.3 8.9 - 10.2 mg/dL 01/12/2025 6:24 PM EDT [facility] Total Protein 6.4 6.3 - 7.9 g/dL 01/12/2025 6:24 PM EDT [facility] Albumin, Plasma 4.5 3.5 - 5.2 g/dL 01/12/2025 6:24 PM EDT [facility] AST, Plasma 14 10 - 35 U/L 01/12/2025 6:24 PM EDT [facility] ALT, Plasma 15 10 - 35 U/L 01/12/2025 6:24 PM EDT [facility] Alkaline Phosphatase, Plasma 80 35 - 104 U/L 01/12/2025 6:24 PM EDT [facility] Total Bilirubin, Plasma 0.5 0.2 - 1.1 mg/dL 01/12/2025 6:24 PM EDT [facility] eGFRcr 117.4 mL/min/1.7 3m*2 01/12/2025 6:24 PM EDT [facility] Comment:Reported eGFRcr in m L/min/1.73m2 is based the CKD-EPI 2020 equation that does not use a race coefficient. Blood Venous blood specimen / Unknown Venipuncture / Unknown 01/12/2025 2:21 PM EDT 01/12/2025 2:21 PM EDT us Lilliana Thomasum [facility] LAB BLOOD ORDERABLES Final Re sult [facility] [address] [place] [address] * Free T4, Plasma (01/12/2025 2:21 PM EDT) Free T4, Plasma 1.4 0.8 - 1.7 ng/dL 01/12/2025 6:24 PM EDT [facility] Blood Venous blood specimen / Unknown Venipuncture / Unknown 01/12/2025 2:21 PM EDT 01/12/2025 2:21 PM EDT Narrative [facility] - 01/12/2025 6:24 PM EDT Free T4 Trimester Specific Ranges 1st Trimester 0.9 - 1.50 ng/dL 2nd Trimester 0.7 - 1.40 ng/dL 3rd Trimester 0.7 - 1.24 ng/dL us Lilliana Cobian [place] [facility] BLOOD ORDERABLES Final Re sult Performing Organization Address [facility]/ZIP Co de Phone Number [facility] [address] [place] [address] * Thyroid Stimulating Hormone, Plasma (01/12/2025 2:21 PM EDT) Thyroid Stimulating Hormone, Plasma 0.73 0.40 - 4.20 uIU/mL 01/12/2025 6:24 PM EDT [facility] Blood Venous blood specimen / Unknown Venipuncture / Unknown 01/12/2025 2:21 PM EDT 01/12/2025 2:21 PM EDT Narrative [facility] - 01/12/2025 6:24 PM EDT Trimester Specific Ranges TSH ( IU/mL) 1st Trimester 0.1 - 3.0 2nd Trimester 0.19 - 4.06 3rd Trimester 0.3 - 3.7 us Lilliana Cobian [place] [facility] BLOOD ORDERABLES Final Re sult Performing Organization Address City/[facility]/[place] [address] documented in this encounter Visit Diagnoses Diagnosis Healthcare maintenance- Primary Left thyroid nodule Generalized anxiety disorder Acute stress reaction Unspecified acute reaction to stress documented in this encounter Additional Health Concerns Assessment Noted Time PHQ-9 Depression Total Score: 19 025 1:48 PM EDT A fall risk assessment has been complete d for the patient 01/28/2024 11:41 AM EDT A Body Mass Index follow-up plan has been documented for the patient 01/12/2025 2:39 PM EDT documented as of this encounter Care Teams Photographic Colorist Relationship Specialty Start Date End Date Lilliana Juarez, [facility] [address] [place] [address] PCP - General 11/12/20 documented as of this encounter
--- NOTE | 2025-01-20 10:55 | US_ITS ---
FINAL REPORT TECHNIQUE: Real-time grayscale and color ultrasound of the thyroid was performed. CLINICAL HISTORY: LEFT NODULE COMPARISON: None FINDINGS: The thyroid gland volumes are 5.9 mm on the right and 19.7 mm on the left. The isthmus measures 2 mm. The right thyroid lobe is normal in size. The left lobe is enlarged due to the presence of a mass. The echotexture is overall normal. Nodules: Dominant isoechoic mass left lobe measuring 3.6 cm classified as a TR 3 lesion. No mass seen within the right lobe. IMPRESSION: Dominant left lobe lesion. Ultrasound-directed FNA recommended per TI-RADS criteria. Reviewed, Interpreted and Dictated by Sravan Aguirre MD Transcribed by Anitha Em Authenticated and [facility]
--- OUTSIDE RECORDS SUMMARY | 2025-01-20 10:56 | XMS_ITS | Encounter Summary ---
Author Organization Healthcare Address [address] [place] [address] Care Team Providers Care Rotary Kiln Operator Name Role Phone Lilliana Juarez PITTING MACHINE OPERATOR Primary Care Provider [phone] Encounter Details Date Type Department Care Team (Late st Contact Info) Description 01/13/2025 Results Follow-Up [facility] [address] [place] [address] Lilliana Juarez APRN [address] [place] [address] Social History Tobacco Use Types Packs/Day Years Used Date Smoking Tobacco: Every Day Cigarettes 1 10.6 Started: 2014 Smokeless Tobacco: Never Alcohol Use Standard Drinks/Week Comments Never 0 [...] 01/10/2024 How often do you attend chur or yazidism services? Never 01/10/2024 Do you belong to any clubs o r organizations such as latter day groups, unions, fraternal or athletic groups, or [...] Recorded Patient Health Questionnaire-2 Score 4 01/12/2025 [facility] of Occupat ional Health - Occupational Stress [...] place to sleep or slept in a usp (including now)? No 01/10/2024 PHQ-9 Answer Date [...] any time in the past 12 m [facility], were you homeless or living in a usp (including now)? No 10/14/2024 Humiliation, Afraid, Rape, [...] any time in the past 12 m [facility], were you homeless or living in a usp (including now)? No 01/12/2025 Safety and Environment [...] Recorded In the past 12 months has [facility] electric, gas, oil, or water [employer] threatened to shut off services in your home? No 01/12/2025 PHQ-2A Answer Date Recorded Patient Health Questionnaire-2 Score 0 10/18/2022 Comments No Sex and Gender Information Value Date Recorded Sex Assigned at Not on file Legal Sex Female 8:20 PM EDT Gender Identity Female 01/28/2024 1:03 PM EDT Sexual Orientation Not on file documented as of this encounter Plan of Treatment Upcoming Encounters Date Type Department Care Team (Late st Contact Info) Description 01/29/2025 1:45 PM EDT Office Visit Obstetrics & Gynecology [address] [place] [address] Canelo Oliva MD [address] [place] [address] 02/10/2025 8:20 AM EDT Office Visit [facility] [address] [place] [address] Lilliana Juarez, PITTING MACHINE OPERATOR [address] [place] [address] 02/23/2025 8:45 AM EDT Office Visit Obstetrics & Gynecology [address] [place] [address] Canelo Oliva MD [address] [place] [address] documented as of this encounter Visit Diagnoses Not on filedocumented in this encounter Additional Health Concerns Assessment Noted Time PHQ-9 Depression Total Score: 19 025 1:48 PM EDT A fall risk assessment has been complete d for the patient 01/28/2024 11:41 AM EDT A Body Mass Index follow-up plan has been documented for the patient 01/12/2025 2:39 PM EDT documented as of this encounter Care Teams Rotary Kiln Operator Relationship Specialty Start Date End Date Lilliana Juarez, PITTING MACHINE OPERATOR [address] [place] [address] PCP - General 11/12/20 documented as of this encounter
--- OUTSIDE RECORDS SUMMARY | 2025-01-20 10:56 | XMS_ITS | Encounter Summary ---
Author Organization Healthcare Address [address] [place] [address] Care Team Providers Care Pyrometer Mechanic Name Role Phone Lilliana Juarez APRN Primary Care Provider [phone] Encounter Details Date Type Department Care Team (Latest Contact Info) Description 01/12/2025 Travel Social History Tobacco Use Types Packs/Day Years [...] often do you attend chur ch or jewish services? Never 01/10/2024 Do you belong to any clubs o r organizations such as jehovah's witness groups, unions, fraternal or athletic groups, or [...] Recorded Patient Health Questionnaire-2 Score 4 01/12/2025 [facility] of Occupat ional [facility] - Occupational Stress Questionnaire Answer Date Recorded [...] place to sleep or slept in a retirement (including now)? No 01/10/2024 PHQ-9 Answer Date [...] any time in the past [address] [facility], were you homeless or living in a retirement (including now)? No 10/14/2024 Humiliation, Afraid, Rape, [...] any time in the past [address] [facility], were you homeless or living in a retirement (including now)? No 01/12/2025 Safety and Environment [...] Recorded In the past 12 months has th e [employer], gas, oil, or water company threatened to shut off services in your home? No 01/12/2025 PHQ-2A Answer Date Recorded Patient Health Questionnaire-2 Score 0 10/18/2022 Comments No Sex and Gender Information Value Date Recorded Sex Assigned at Not on file Legal Sex Female 8:20 PM EDT Gender Identity Female 01/28/2024 1:03 PM EDT Sexual Orientation Not on file documented as of this encounter Functional Status * Over the [...] other people? Very difficult 01/12/2025 1:48 PM EDT Lory Plasencia * How difficult have these problems made [...] Jose Plasencia 6. Suicidal Behavior (Lifetime) No 1:46 PM EDT Lory Plasencia documented as of this encounter Plan of Treatment Upcoming Encounters Date Type Department Care Team (Late st Contact Info) Description 01/29/2025 1:45 PM EDT Office Visit Obstetrics & Gynecology [address] [place] [address] Canelo Oliva MD [address] [place] [address] 02/10/2025 8:20 AM EDT Office Visit [facility] [address] [place] [address] Lilliana Juarez, JOURNEYMAN MECHANIC [address] [place] [address] 02/23/2025 8:45 AM EDT Office Visit Obstetrics & Gynecology [address] [place] [address] Canelo Oliva MD [address] [place] [address] documented as of this encounter [...] documented as of this encounter Care Teams Pyrometer Mechanic Relationship Specialty Start Date End Date Lilliana Juarez, JOURNEYMAN MECHANIC [address] [place] [id number] PCP - General 11/12/20 documented as of this encounter
--- OUTSIDE RECORDS SUMMARY | 2025-01-20 10:56 | XMS_ITS | Encounter Summary ---
Author Organization [facility] Address [address] [place] [address] Care Team Providers Care Human Services Supervisor Name Role Phone Lilliana Juarez APRN Primary Care Provider Reason for Visit * Reason Comments Med Refill Encounter Details Date Type Department Care Team (Late st Contact Info) Description 12/04/2024 Refill [facility] [address] [place] [address] Falguni Ochoa MD [address] [place] [address] Social History Tobacco Use Types Packs/Day Years Used Date Smoking Tobacco: Every Day Cigarettes 1 10.6 Started: 2014 Smokeless Tobacco: Never Alcohol Use Standard Drinks/Week Comments Never 0 (1 standard drink = 0.6 oz pur e alcohol) Humiliation, Afraid, Rape, and Kick questionnair e Answer Date Recorded Within the last year, have y ou been afraid of your partner or ex-partner? Patient declined 01/10/2024 Within the last year, have y ou been humiliated or emotionally abused in other ways by your partner or ex-partner? Patient declined 01/10/2024 Within the last year, have y ou been kicked, hit, slapped, or otherwise physically hurt by your partner or ex-partner? Patient declined 01/10/2024 Within the last year, have y ou been raped or forced to have any kind of sexual activity by your partner or ex-partner? Patient declined 01/10/2024 Social Connection and Isolation Panel Answer Date Recorded In a typical week, how many times do you talk on the phone with family, friends, or neighbors? More than three times a week 01/10/2024 How often do you get togethe r with friends or relatives? Once a week 01/10/2024 How often do you attend chur or sikhism services? Never 01/10/2024 Do you belong to any clubs o r organizations such as episcopalian groups, unions, fraternal or athletic groups, or [...] Answer Date Recorded Patient Health Questionnaire-2 Score 6 10/15/2024 [facility] - Occupational Stress Questionnaire Answer Date Recorded [...] exercise at this level? 60 min 01/10/2024 Hunger Vital Sign Answer Date Recorded Within the past 12 months, y ou worried that your food would run out before you got the money to buy more. Never true Within the past 12 months, t he food you bought just didn't last and you didn't have money to get more. Patient declined PRAPARE - Transportation Answer Date Re corded In the past 12 months, has l ack of transportation kept you from medical appointments or from getting medications? No 09/30 In the past 12 months, has l ack of transportation kept you from meetings, work, or from getting things needed for daily living? No 10/14/2024 Housing Stability Vital Sign Answer Jas e [...] place to sleep or slept in a penitentiary (including now)? No 01/10/2024 PHQ-9 Answer Date Recorded Patient Health Questionnaire-9 Score 24 10/15/2024 Housing Stability Vital Sign Answer Jas e Recorded In the last 12 months, was t here a time when you were not able to pay the mortgage or rent on time? No 10/14/2024 In the past 12 months, how m any times have you moved where you were living? 0 10/14/2024 At any time in the past [address] [facility], were you homeless or living in a penitentiary (including now)? No 10/14/2024 Safety and Environment Answer Date Benito rded [...] the past 12 months has th e electric, gas, oil, or water company threatened to shut off services in your home? No 10/14/2024 PHQ-2A Answer Date Recorded Patient Health Questionnaire-2 Score 0 10/18/2022 Comments No Sex and Gender Information Value Date Recorded Sex Assigned at Not on file Legal Sex Female 8:20 PM EDT Gender Identity Female 01/28/2024 1:03 PM EDT Sexual Orientation Not on file documented as of this encounter Miscellaneous Notes * Telephone Encounter - Fauzia Adams LPN - 12/09/2024 12:24 PM EDT Tried to call pt x 2. Mailbox full. Unable to leave message. * Telephone Encounter - Fauzia Adams LPN - 12/08/2024 1:55 PM EDT Tried to call pt. Mailbox full. Pt had apt 10/15/24, was supposed to f/u in 3 weeks. Also sent a [employer] message. documented in this encounter Plan of Treatment Upcoming Encounters Date Type Department Care Team (Late st Contact Info) Description 01/29/2025 1:45 PM EDT Office Visit Obstetrics & Gynecology [address] [place] [address] Canelo Oliva MD [address] [place] [address] 02/10/2025 8:20 AM EDT Office Visit [facility] [address] [place] [address] Lilliana Juarez, ELECTROLESS PLATER [address] [place] [address] 02/23/2025 8:45 AM EDT Office Visit Obstetrics & Gynecology [address] [place] [address] Canelo Oliva MD [address] [place] [address] documented as of this encounter Visit Diagnoses Not on filedocumented in this encounter Additional Health Concerns Assessment Noted Time PHQ-9 Depression Total Score: 24 025 9:48 AM EDT A fall risk assessment has been complete d for the patient 01/28/2024 11:41 AM EDT A Body Mass Index follow-up plan has been documented for the patient 10/15/2024 10:19 AM EDT documented as of this encounter Care Teams Human Services Supervisor Relationship Specialty Start Date End Date Lilliana Juarez APRN [address] [place] [phone] PCP - General 11/12/20 documented as of this encounter
--- OUTSIDE RECORDS SUMMARY | 2025-01-20 10:56 | XMS_ITS | Clinical Summary ---
Author Organization [facility] Address [address] [place] [address] Care Team Providers Care Hat Blocking Machine Operator Name Role Phone Lilliana Juarez APRN Primary Care Provider [phone] Allergies No known active allergies Medications fluticasone (Flonase) 50 MCG/ACT nasal sprayIndicatio ns:Allergic rhinitis with postnasal drip Administer 1 spray into each nostril 1 (one) time each day. Shake gently. Before first use, prime pump. After use, clean tip and replace cap. 16 g 12 01/10/20 24 Active propranolol (Inderal) 10 MG tabletIndicati ons:Generalize d anxiety disorder Take 1 tablet by mouth 3 times a day. 60 tablet 5 01/13/20 25 Active Sertraline HCl 200 MG capsuleIndicat ions:Generaliz ed anxiety disorder Take 200 mg by mouth daily. 90 capsule 3 01/13/20 25 Active busPIRone (Buspar) 5 MG tablet Take 1 tablet by mouth in the morning and 1 tablet before bedtime. 60 tablet 1 10/16/19 25 025 Discontinued sertraline (Zoloft) 100 MG tablet Take 1.5 tablets by mouth daily. 45 tablet 1 10/16/19 25 025 Discontinued(Do se adjustment) Active Problems Problem Noted Date Diagnosed Date Frequent headaches 02/09/2020 Anxiety 02/07/2019 Pain in both wrists 02/07/2019 Encounter for control 01/09/2019 Encounter for supervision of normal Encounters Date Type Department Care Team Description 01/13/2025 Results Follow-Up [facility] [address] [place] [address] Lilliana Juarez APRN 01/12/2025 1:40 PM EDT Office Visit [facility] [address] [place] [address] Lilliana Juarez, ORDER CALLER Healthcare maintenance (Primary Dx); Left thyroid nodule; Generalized anxiety disorder; Acute stress reaction 01/12/2025 Travel 12/31/2024 Telephone Obstetrics & Gynecology [address] [place] [address] Canelo Oliva MD 12/04/2024 Refill [facility] [address] [place] [address] Falguni Ochoa MD from Last 3 Months Immunizations Immunization Administration Dates Next Due DTaP / Hep B / IPV 04/25/2013 DTaP, Unspecified 08/29/1995 Hep B, Adolescent or Pediatric 07/25/2002,2001,12/26/2001 Hib (HbOC) 04/25/2013 Influenza, injectable, quadr ivalent, preservative free 05/09/2022,04/22/2020 MMR 11/30/2018,08/29/1995 OPV 08/29/1995 Pneumococcal Conjugate PCV 13 04/25/2013 Rotavirus Monovalent 04/25/2013 Tdap 03/14/2006 Family History Medical History Relation Name Comments Lung cancer Maternal Grandfather Breast cancer Mother Hypertension Mother Depression Mother's Sister Asthma Son 1 Allergic rhinitis Son 2 Relation Name Status Comments Maternal Grandfather Mother Mother's Sister Son 1 Son 2 Social History Tobacco Use Types Packs/Day Years [...] often do you attend chur ch or mandaeism services? Never 01/10/2024 Do you belong to any clubs o r organizations such as druze groups, unions, fraternal or athletic groups, or [...] Recorded Patient Health Questionnaire-2 Score 4 01/12/2025 [facility] - Occupational [...] in the past 12 m [facility], were you homeless or living in a [...] in the past 12 m [facility], were you homeless or living in a [...] Recorded In the past 12 months has V[employer], gas, oil, or water [employer] threatened to shut off services in your home? No 01/12/2025 PHQ-2A Answer Date Recorded Patient Health Questionnaire-2 Score 0 10/18/2022 Comments No Sex and Gender Information Value Date Recorded Sex Assigned at Not on file Legal Sex Female 8:20 PM EDT Gender Identity Female 01/28/2024 1:03 PM EDT Sexual Orientation Not on file Last Filed Vital Signs Vital Sign Reading Time Taken Comments Blood Pressure 122/82 01/12/2025 1:45 PM EDT Pulse 75 01/12/2025 1:45 PM EDT Temperature 37.1 C (98.7 F) 10/15/2024 9:39 AM EDT Respiratory Rate 18 01/12/2025 1:45 PM EDT Oxygen Saturation 97% 01/12/2025 1:45 PM EDT Inhaled Oxygen Concentration - - Weight 70.8 kg (156 lb 1.6 oz) 01/12/2025 1:45 P M EDT Height 172.7 cm (5' 8 ) 01/12/2025 1:45 PM EDT Body Mass Index 23.73 01/12/2025 1:45 PM EDT Plan of Treatment Upcoming Encounters Date Type Department Care Team (Late st Contact Info) Description 01/29/2025 1:45 PM EDT Office Visit Obstetrics & Gynecology [address] [place] [address] Canelo Oliva MD [address] [place] [address] 02/10/2025 8:20 AM EDT Office Visit [facility] [address] [place] [address] Lilliana Juarez, COOPER [address] [place] [address] 02/23/2025 8:45 AM EDT Office Visit Obstetrics & Gynecology [address] [place] [address] Canelo Oliva MD [address] [place] [address] Health Maintenance Due Date Last Done Comments [facility]-/Child/Adol SDOH Screenings 1990 HPV Vaccines (1 - 3-dose series) 2005 [facility]-Pneumococcal Vaccine: Pediatrics (0 to 5 Years) and At-Risk Patients (6 to 49 Years) (2 of 2 - PPSV23) 06/20/2013 04/25/2013 [facility]-IPV Vaccines (3 of 3 - 4-dose series) 10/24/2013 04/25/2013, 08/29/1995 [facility]-Varicella Vaccines (1 of 2 - 13+ 2-dose series) 12/28/2018 [facility]-DTaP,Tdap,and Td Vaccines (4 - Td or Tdap) 04/25/2023 04/25/2013, 03/14/2006, 08/29/1995 [id number] Vaccine (3 - season) 2024 09/02/2021, 08/10/2021 [facility]-Influenza Vaccine (#1) 2025 05/09/2022, [facility]- SDOH Screenings 07/15/2025 [facility]-Adult SDOH Screenings 07/15/2025 01/12/2025 [facility]-Depression Screening 01/12/2026 01/12/2025, 12/30 [facility]-Pap Smear 01/27/2027 01/28/2024 [facility]-Cervical Cancer Screening 01/27/2029 [facility]-HPV/Cotest 01/27/2029 01/28/2024 [facility]-Zoster Vaccines (1 of 2) 2040 [facility]-HIB Vaccines Aged Out 04/25/2013 No longer e ligible based on patient's age to complete this topic [facility]-Hepatitis B Vaccines Completed 013, 07/25/2002, 02/03/2002, Additional history exists [facility]-Rotavirus Vaccines Aged Out 04/25/2013 No lo nger eligible based on patient's age to complete this topic [facility]-HIV Screening Completed 04/19/2018 [facility]-Hepatitis C Screening Completed 04/19/2018 [facility]-Hepatitis A Vaccines Aged Out No longer eligible based on patient's age to complete this topic Procedures Procedure Name Priority Date/Time Associated Diagnosis Comments VITAMIN B12, SERUM Routine 01/12/2025 2: 21 PM EDT Healthcare maintenance VITAMIN D 25 HYDROXY Routine 01/12/2025 2:21 PM EDT Healthcare maintenance HEMOGLOBIN A1C Routine 01/12/2025 2:21 PM EDT Healthcare maintenance LIPID PROFILE, PLASMA Routine 01/12/2025 2:21 PM EDT Healthcare maintenance CBC WITH AUTO DIFFERENTIAL Routine 01/12/2025 2:21 PM EDT Healthcare maintenance COMPREHENSIVE METABOLIC PANEL, PLASMA Routine 01/12/2025 2:21 PM EDT Healthcare maintenance FREE T4, PLASMA Routine 01/12/2025 2:21 PM EDT Healthcare maintenance TSH Routine 01/12/2025 2:21 PM EDT Healthcare maintenance REFERRED THINPREP PAP AND HPV (SO) Routine 01/28/2024 11:58 AM EDT Encounter for annual routine gynecological examination HEPATITIS C ANTIBODY W/REFLEX TO HCV QUANT PCR Routine 04/19/2018 10:17 AM EDT HIV 1/2 ANTIBODY/ANTIGEN SCREEN WITH REFLEX TO HIV I/II DIFFERENTIATION Routine 04/19/2018 10:17 AM EDT from Last 3 Months or Most Recently Relevant to Health Maintenance Results * Vitamin D 25 Hydroxy (01/12/2025 2:21 PM EDT) Pathologist [facility] Vitamin D 25 Hydroxy 58.1 20.0 - 80.0 ng/mL 01/12/2025 7:31 PM EDT [facility] Blood Venous blood specimen / Unknown Venipuncture / Unknown 01/12/2025 2:21 PM EDT 01/12/2025 2:21 PM EDT Narrative [facility] - 01/12/2025 7:31 PM EDT Testing performed on [employer] Water Treatment Operator, standardized against NIST SRM 2972. When testing [...] to 80 ng/mL Possible toxicity: >100 ng/mL us Lilliana Juarez APRN LAB BLOOD ORDERABLES Final Re sult [facility] [address] [place] [address] * (ABNORMAL) CBC and Differential (01/12/2025 2:21 PM EDT) Pathologist [facility] WBC Count 7.42 3.70 - 10.30 10*3/uL LAB HEMATOLOGY METHOD 01/12/2025 6:11 PM EDT [facility] RBC Count 4.32 3.90 - 5.20 10*6/uL LAB HEMATOLOGY METHOD 01/12/2025 6:11 PM EDT [facility] HGB 13.9 11.2 - 15.7 g/dL LAB HEMATOLOGY METHOD 01/12/2025 6:11 PM EDT [facility] HCT 41.5 34.0 - 45.0 % LAB HEMATOLOGY METHOD 01/12/2025 6:11 PM EDT [facility] Platelet Count 241 155 - 369 10*3/uL LAB HEMATOLOGY METHOD 01/12/2025 6:11 PM EDT [facility] MCV 96 79 - 98 fL LAB HEMATOLOGY METHOD 01/12/2025 6:11 PM EDT [facility] MCH 32.2(H) 26.0 - 32.0 pg LAB HEMATOLOGY METHOD 01/12/2025 6:11 PM EDT [facility] MCHC 33.5 30.7 - 35.5 g/dL LAB HEMATOLOGY METHOD 01/12/2025 6:11 PM EDT [facility] RDW 12.9 11.5 - 14.5 % LAB HEMATOLOGY METHOD 01/12/2025 6:11 PM EDT [facility] MPV 11.3 8.8 - 12.5 fL LAB HEMATOLOGY METHOD 01/12/2025 6:11 PM EDT [facility] nRBC 0.0 <=0.0 per 100 WBCs LAB HEMATOLOGY METHOD 01/12/2025 6:11 PM EDT [facility] Differential Type Automated LAB HEMATOLOGY METHOD 01/12/2025 6:11 PM EDT [facility] Neutrophils % 63 % LAB HEMATOLOGY METHOD 01/12/2025 6:11 PM EDT [facility] Lymphocytes % 28 % LAB HEMATOLOGY METHOD 01/12/2025 6:11 PM EDT [facility] Monocytes % 7 % LAB HEMATOLOGY METHOD 01/12/2025 6:11 PM EDT [facility] Eosinophils % 1 % LAB HEMATOLOGY METHOD 01/12/2025 6:11 PM EDT [facility] Basophils % 1 % LAB HEMATOLOGY METHOD 01/12/2025 6:11 PM EDT [facility] Immature Granulocytes % 0 % LAB HEMATOLOGY METHOD 01/12/2025 6:11 PM EDT [facility] Neutrophils Absolute 4.67 1.60 - 6.10 10*3/uL LAB HEMATOLOGY METHOD 01/12/2025 6:11 PM EDT [facility] Lymphocytes Absolute 2.05 1.20 - 3.90 10*3/uL LAB HEMATOLOGY METHOD 01/12/2025 6:11 PM EDT [facility] Monocytes Absolute 0.54 0.30 - 0.90 10*3/uL LAB HEMATOLOGY METHOD 01/12/2025 6:11 PM EDT [facility] Eosinophils Absolute 0.09 0.00 - 0.50 10*3/uL LAB HEMATOLOGY METHOD 01/12/2025 6:11 PM EDT [facility] Basophils Absolute 0.05 0.00 - 0.10 10*3/uL LAB HEMATOLOGY METHOD 01/12/2025 6:11 PM EDT [facility] Immature Granulocytes Absolute 0.02 0.00 - 0.06 10*3/uL LAB HEMATOLOGY METHOD 01/12/2025 6:11 PM EDT [facility] Blood Venous blood specimen / Unknown Venipuncture / Unknown 01/12/2025 2:21 PM EDT 01/12/2025 2:21 PM EDT Narrative [facility] - 01/12/2025 6:11 PM EDT Therapeutic decision making should be based on absolute values, rather than percentages. Lilliana [employer] [place] ORDER CALLER LAB BLOOD ORDERABLES Final Re sult Performing Organization Address [facility] Co de Phone Number [facility] [address] [place] [address] * Thyroid Stimulating Hormone, Plasma (01/12/2025 2:21 PM EDT) Thyroid Stimulating Hormone, Plasma 0.73 0.40 - 4.20 uIU/mL 01/12/2025 6:24 PM EDT [facility] Blood Venous blood specimen / Unknown Venipuncture / Unknown 01/12/2025 2:21 PM EDT 01/12/2025 2:21 PM EDT Narrative [facility] - 01/12/2025 6:24 PM EDT Trimester Specific Ranges TSH ( IU/mL) 1st Trimester 0.1 - 3.0 2nd Trimester 0.19 - 4.06 3rd Trimester 0.3 - 3.7 Lilliana M [place] ORDER CALLER LAB BLOOD ORDERABLES Final Re sult Performing Organization Address [facility]/ZIP Co de Phone Number [facility] [address] [place] [address] * Free T4, Plasma (01/12/2025 2:21 PM EDT) Free T4, Plasma 1.4 0.8 - 1.7 ng/dL 01/12/2025 6:24 PM EDT [facility] Blood Venous blood specimen / Unknown Venipuncture / Unknown 01/12/2025 2:21 PM EDT 01/12/2025 2:21 PM EDT Narrative [facility] - 01/12/2025 6:24 PM EDT Free T4 Trimester Specific Ranges 1st Trimester 0.9 - 1.50 ng/dL 2nd Trimester 0.7 - 1.40 ng/dL 3rd Trimester 0.7 - 1.24 ng/dL Lilliana [employer] [place] ORDER CALLER LAB BLOOD ORDERABLES Final Re sult Performing Organization Address [facility] Co de Phone Number [facility] [address] [place] [address] * Hemoglobin A1c (01/12/2025 2:21 PM EDT) Hemoglobin A1c 5.0 <5.7 % 01/12/2025 8:54 PM EDT [facility] Blood Venous blood specimen / Unknown Venipuncture / Unknown 01/12/2025 2:21 PM EDT 01/12/2025 2:21 PM EDT Narrative [facility] - 01/12/2025 8:54 PM EDT HA1C Interpretive Data: Diagnosis of Diabetes: Diabetic > or = 6.5% Pre-diabetic 5.7 to 6.4% Non-diabetic < or = 5.6% Glycemic Targets for Type I and Type II Diabetics: Non- Adults <7.0% Adults <6.0% Children and Adolescents <7.5% Source: [place] [employer]. Standards of medical care in diabetes,2017. Diabetes Care.2017:40 (suppl 1):S1-S135. us Lilliana [employer] [place] ORDER CALLER LAB BLOOD ORDERABLES Final Re sult Performing Organization Address [facility] Co de Phone Number [facility] [address] [place] [address] * Vitamin B12, Serum (01/12/2025 2:21 PM EDT) Vitamin B12, Serum 367 210 - 1,033 pg/mL 01/12/2025 6:32 PM EDT [facility] Blood Venous blood specimen / Unknown Venipuncture / Unknown 01/12/2025 2:21 PM EDT 01/12/2025 2:21 PM EDT us Lilliana Juarez ORDER CALLER LAB BLOOD ORDERABLES Final Re sult [facility] [address] [place] [address] * (ABNORMAL) Lipid Profile, Plasma (01/12/2025 2:21 PM EDT) Cholesterol, Plasma 114 <200 mg/dL 01/12/2025 6:24 PM EDT [facility] Comment: Cholesterol Reference Range (age >17 years): Desirable <200 mg/dL Borderline 200 to 239 mg/dL Undesirable >239 mg/dL HDL 21(L) >=50 mg/dL 01/12/2025 6:24 PM EDT [facility] Comment: HDL Cholesterol Reference Ranges (age >17 years): Female, acceptable > or = 50 mg/dL Male, acceptable > or = 40 mg/dL Triglycerides, Plasma 105 <150 mg/dL 01/12/2025 6:24 PM EDT [facility] Comment: Triglyceride Reference Range (age >17 years): Desirable: <150 mg/dL Borderline high: 150 to 199 mg/dL High: 200 to 499 mg/dL Very high: >499 mg/dL Increased risk of pancreatitis: >1000 mg/dL Cholesterol/HDL Ratio 5 01/12/2025 6:24 PM EDT [facility] LDL, Calculated 73 <100 mg/dL 6:24 PM EDT [facility] Comment: LDL Cholesterol Reference Range [...] 12 hours? Yes 01/12/2025 6:24 PM EDT [facility] Blood Venous blood specimen / Unknown Venipuncture / Unknown 01/12/2025 2:21 PM EDT 01/12/2025 2:21 PM EDT us Lilliana Juarez ORDER CALLER LAB BLOOD ORDERABLES Final Re sult [facility] [address] [place] [address] * Comprehensive Metabolic Panel, Plasma (01/12/2025 2:21 PM EDT) Glucose, Plasma 88 74 - 99 mg/dL 01/12/2025 6:24 PM EDT [facility] BUN, Plasma 7 7 - 21 mg/dL 01/12/2025 6:24 PM EDT [facility] Creatinine, Plasma 0.68 0.60 - 1.10 mg/dL 01/12/2025 6:24 PM EDT [facility] BUN/Creatinine Ratio 10 01/12/2025 6:24 PM EDT [facility] Sodium, Plasma 137 136 - 145 mmol/L 01/12/2025 6:24 PM EDT [facility] Potassium, Plasma 3.6 3.6 - 4.9 mmol/L 01/12/2025 6:24 PM EDT [facility] Chloride, Plasma 103 97 - 107 mmol/L 01/12/2025 6:24 PM EDT [facility] CO2, Plasma 24 22 - 29 mmol/L 01/12/2025 6:24 PM EDT [facility] Anion Gap 10 6 - 16 mmol/L 01/12/2025 6:24 PM EDT [facility] Total Calcium, Plasma 9.3 8.9 - 10.2 mg/dL 01/12/2025 6:24 PM EDT [facility] Total Protein 6.4 6.3 - 7.9 g/dL 01/12/2025 6:24 PM EDT [facility] Albumin, Plasma 4.5 3.5 - 5.2 g/dL 01/12/2025 6:24 PM EDT [facility] AST, Plasma 14 10 - 35 U/L 01/12/2025 6:24 PM EDT [facility] ALT, Plasma 15 10 - 35 U/L 01/12/2025 6:24 PM EDT [facility] Alkaline Phosphatase, Plasma 80 35 - 104 U/L 01/12/2025 6:24 PM EDT [facility] Total Bilirubin, Plasma 0.5 0.2 - 1.1 mg/dL 01/12/2025 6:24 PM EDT [facility] eGFRcr 117.4 mL/min/1.7 3m*2 01/12/2025 6:24 PM EDT [facility] Comment:Reported eGFRcr in m L/min/1.73m2 is based the CKD-EPI 2020 equation that does not use a race coefficient. Blood Venous blood specimen / Unknown Venipuncture / Unknown 01/12/2025 2:21 PM EDT 01/12/2025 2:21 PM EDT us Lilliana Juarez ORDER CALLER LAB BLOOD ORDERABLES Final Re sult [facility] [address] [place] [address] * Referred ThinPrep Pap and HPV (SO) (01/28/2024 11:58 AM EDT) Pap, Source Cx/Vagina 02/07/2024 10:40 AM EDT [facility] ([employer]) EER Referred ThinPrep Pap and HPV See Note 02/07/2024 10:40 AM EDT [facility] ([employer]) PAP, THINPREP Normal 02/07/2024 10:40 AM EDT [facility] ([employer]) High Risk HPV Normal 02/07/2024 10:40 AM EDT [facility] ([employer]) Swab Vaginal and cervical cytologic material / Unknown Non-blood Collection / Unknown 01/28/2024 11:58 AM EDT 01/28/2024 12:50 PM EDT Narrative [facility]) - 02/07/2024 10:40 AM EDT Authorized individuals can access the [facility] Enhanced Report using the following link: [email or web address] Performed By: [facility] [address] [place] [address] Outside Solar Sales Consultant: Edi Razo MD, PhD CLIA Number: [id number] SPECIMEN PART A. Cervical, Endocervical, Vaginal, ThinPrep Pap ([employer]) CYTOLOGY HX Date of Last Menstrual Period: N FINAL DIAGNOSIS INTERPRETATION: Negative for Intraepithelial Lesion or Malignancy. SPECIMEN ADEQUACY:Satisfactory for evaluation. Endocervical/transformation zone component present. Electronically Signed Out : Colette Garcia Performed by: [facility] [address] [place] [address] [place] [address] Lilliana Galan MD, HR-HPV: Negative Test performed by the FDA-approved Hologic (Gen-Probe) APTIMA HPV test, which detects HPV genotypes: 16, 18, 31, 33, 35, 39, 45, 51, 52, 56, 58, 59, 66, and 68. Performed by: [facility] [place] [place] [address] Lilliana Galan MD, us Canelo Oliva MD LAB REF LAB BLOOD AND FLUID ORD Final Result [facility]) [address] [place] [address] * HIV 1 & 2 Antibody/Antigen Screen (04/19/2018 10:17 AM EDT) HIV 1 Result NONREACTIVE Screening for HIV 1 and 2 antibodies is NONREACTIVE. No confirmatory testing is required. [facility] 04/19/2018 10:1 7 AM EDT 04/19/2018 12:54 PM EDT Historical Provider MD LAB BLOOD ORDERABLES Dyan l Result SUNQUEST * Hepatitis C Antibody (04/19/2018 10:17 AM EDT) Hepatitis C Antibody NEGATIVE Reference Range: Negative [facility] 04/19/2018 10:1 7 AM EDT 04/19/2018 12:54 PM EDT Historical Provider LAB BLOOD ORDERABLES Dyan l Result SUNQUEST from Last 3 Months or Most Recently Relevant to Health Maintenance Insurance [facility] MEDICAID PONCE Care Teams Hat Blocking Machine Operator Relationship Specialty Start Date End Date Lilliana Juarez [place] [address] PCP - General 11/12/20
--- OUTSIDE RECORDS SUMMARY | 2025-01-20 10:56 | XMS_ITS | Encounter Summary ---
Author Organization [facility] Address [address] [place] [address] Care Team Providers Care Malted Milk Supervisor Name Role Phone Lilliana Juarez APRN Primary Care Provider [phone] Encounter Details Date Type Department Care Team (Late st Contact Info) Description 12/31/2024 Telephone Obstetrics & Gynecology [address] [place] [address] Canelo Oliva MD [address] [place] [address] Social History Tobacco Use Types Packs/Day Years [...] How often do you attend chur or worship services? Never 01/10/2024 Do you belong to any clubs o r organizations such as yazidi groups, unions, fraternal or athletic groups, or [...] Recorded Patient Health Questionnaire-2 Score 6 10/15/2024 [facility]ational Stress Questionnaire Answer Date [...] place to sleep or slept in a fci (including now)? No 01/10/2024 PHQ-9 Answer Date [...] any time in the past 12 m [facility], were you homeless or living in a fci (including now)? No 10/14/2024 Safety and Environment [...] encounter Miscellaneous Notes * Telephone Encounter - Zenia Stauffer - 12/31/2024 12:50 PM EDT Clinical Concern/Question Reason for Call: Pt needs to schedule for an annual with you Best contact number: [phone] (home) Optimal time of day to reach caller: ANYTIME Additional comments/information from caller: None Note: Please do not reply to this message. Follow-up communication and further actions as a result of this message need to be communicated with the patient directly, if the patient is not active onMyChart. If the patient is active on MyChart, they will receive notification of the communication/outcome via [facility]. documented in this encounter Plan of Treatment Upcoming Encounters Date Type Department Care Team (Late st Contact Info) Description 01/29/2025 1:45 PM EDT Office Visit Obstetrics & Gynecology [address] [place] [address] Canelo Oliva MD [address] [place] [address] 02/10/2025 8:20 AM EDT Office Visit [facility] [address] [place] [address] Lilliana Juarez, MIRROR PAINTER [address] [place] [address] 02/23/2025 8:45 AM EDT Office Visit Obstetrics & Gynecology [address] [place] [address] Canelo Oliva MD [address] [place] [address] documented as of this encounter [...] documented as of this encounter Care Teams Malted Milk Supervisor Relationship Specialty Start Date End Date Lilliana Juarez APRN [address] [place] [address] PCP - General 11/12/20 documented as of this encounter
== END 2025-01-20 23:59 | disposition home or self-care (01) ==
PROVIDERS: PCP Nurse Practitioner Family; Visit Provider Nurse Practitioner Family
DX: E04.1 Nontoxic single thyroid nodule (principal)
CPT/HCPCS: 76536

== ENCOUNTER 2025-05-17 06:21 | Emergency (ER) | payer MEDICAID, SELFPAY ==
--- NOTE | 2025-05-17 06:29 | CT_ITS ---
PROCEDURE INFORMATION: Exam: CT Abdomen And Pelvis With Contrast Exam date and time: 05/17/2025 7:23 AM Age: 34 years old Clinical indication: Vomiting; Abdominal pain; Flank; Left; Additional info: Sudden L flank pain CVA ttp vomiting TECHNIQUE: Imaging protocol: Computed tomography of the abdomen and pelvis with contrast. Radiation optimization: All CT scans at this facility use at least one of these dose optimization techniques: automated exposure control; mA and/or kV adjustment per patient size (includes targeted exams where dose is matched to clinical indication); or iterative reconstruction. Contrast material: ISOVUE; Contrast volume: 75 ml; Contrast route: IV; COMPARISON: No relevant prior studies available. FINDINGS: Lungs: There is an old calcified granuloma in the right lower lobe. The lung bases are otherwise clear. Diaphragm: Small hiatus hernia. Liver: Mild hepatomegaly. The liver measures about 19.3 cm in craniocaudal dimension. No focal liver lesion appreciated. Gallbladder and biliary ducts: Cholelithiasis but no CT evidence of cholecystitis. Pancreas: Normal. No ductal dilation. Spleen: There is a small old calcified granuloma in the spleen. The spleen is otherwise unremarkable. Adrenal glands: The adrenal glands are normal in appearance. Kidneys and ureters: There is mild left pelvicaliectasis. There is a 3 mm calculus in the proximal left ureter just beyond the left UPJ. There is an additional 4-5 mm nonobstructing calculus in a lower pole calyx of the left kidney. There is a 5 mm simple appearing left renal cortical cyst. The right kidney is unremarkable. The renal parenchyma enhances normally and symmetrically. Stomach and bowel: The small bowel loops are not thickened and are nondilated. There is mild diffuse mural fatty infiltration of the colon which can be associated with chronic inflammatory bowel disease. No active colonic inflammation appreciated at this time. Appendix: The appendix is normal in appearance. No evidence of appendicitis. Intraperitoneal space: Unremarkable. No free air. No significant fluid collection. Vasculature: Prominent bilateral ovarian veins and parametrial veins suggesting bilateral ovarian vein reflux/incompetence. Correlate clinically for pelvic congestion syndrome. Lymph nodes: Unremarkable. No enlarged lymph nodes. Urinary bladder: The urinary bladder is normal in appearance. Reproductive: Status post bilateral tubal ligation. The uterus is mildly prominent likely related to the menstrual cycle. Bones/joints: No acute osseous lesions identified. Soft tissues: Unremarkable. IMPRESSION: 1. Mild pelvicaliectasis of the left kidney secondary to a 3 mm calculus in the proximal left ureter just beyond the left UPJ. 2. Hepatomegaly. 3. Cholelithiasis but no CT evidence of cholecystitis. 4. Stigmata of chronic inflammatory bowel disease. No active colonic inflammation appreciated at this time. 5. 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 Correlate clinically for pelvic congestion syndrome. COMMENTS: Consistent with the [place] [employer]'s Incidental Findings Committee white paper (J Am Martha Radiol 2018): Any incidental renal lesion less than 1 cm or classified as too small to characterize, or any incidental cystic renal lesion characterized as simple-appearing, is likely benign. No follow-up imaging is recommended for these lesions per consensus recommendations based on imaging criteria.
[2025-05-17 06:31] VITALS: BP 123/78; PULSE 61; RESP 16; O2SAT 99; BMI 22.2
--- NOTE | 2025-05-17 06:31 | ED_ITS ---
Discharge Plan Disposition Patient Disposition: Home, Self-Care Condition: Good Prescriptions Prescriptions: New tamsulosin [Flomax] 0.4 mg capsule 0.4 mg PO DAILY Qty: 7 0RF ketorolac 10 mg tablet 10 mg PO Q8H PRN (Reason: pain) 3 Days Qty: 9 0RF ondansetron 4 mg tablet,disintegrating 4 mg PO Q6H PRN (Reason: nausea and vomiting) Qty: 20 0RF cefdinir 300 mg capsule 300 mg PO BID 10 Days Qty: 20 0RF No Action sertraline 100 mg tablet 100 mg PO DAILY meloxicam 7.5 mg tablet 7.5 mg PO DAILY Qty: 30 3RF etonogestrel-ethinyl estradiol 1 EACH ring 1 each VG ONCE azithromycin 250 MG tablet 250 mg PO UD DOSE PK Qty: 6 0RF Rx Instructions: Take two (2) tablets today, then one (1) tablet days #2 thru #5 benzonatate 100 MG capsule 100 mg PO TIDP PRN (Reason: Cough) Qty: 30 0RF Referrals Follow up/Referrals: Lilliana Juarez [Primary Care Provider, Medical] - See instructions Humphrey Martell MD [Staff Physician, General Surgery] - See instructions Activity Restrictions/Add. Instructions Additional Instructions/Restrictions: You were found to have a small kidney stone on the left side. This will likely pass on its own. I am prescribing several medications. Take Flomax as prescribed to help the kidney stone pass. Ensure that you drink plenty of fluids and stay hydrated. You are also being prescribed ketorolac to help with pain. Take this as prescribed. You are also being prescribed Zofran to help with nausea. You are also being prescribed an antibiotic called cefdinir. Take this as prescribed. If you develop any new or worsening symptoms, such as uncontrolled pain, fever, or if you become concerned for your health for any reason, return to the emergency department immediately as this could be evidence of a worsening and severe infection. You were also found to have gallstone that does not appear to be causing issues at this time. I will refer you to our general surgeon, Dr. Martell and I encourage you to contact their office as you may need to have your gallbladder removed in the future. Clinical Impressions Clinical Impression: Ureterolithiasis, Cholelithiasis Instructions Patient Instructions: DI for Acute Abdominal Pain Print Language Print Language: [place]at[place] Discharge ED Provider: Josesito Lai General Adult HPI <Josesito Lia MD - Last Filed: 05/17/25 06:48> General Chief complaint: Abdominal Pain Stated complaint: abd pain, vomiting, numbness extremities Time Seen by Provider: 05/17/25 06:26 History of Present Illness HPI narrative: 34-year-old female presents to the ER with sudden onset left flank pain that woke her up from sleep. She states it has been progressive in the last hour and continues to get worse. She is nauseous from pain and has had an episode of emesis. Had a sensation of numbness in her hands and feet after emesis. Denies fever or chills. Denies headache or dizziness. No chest pain or difficulty breathing. Denies dysuria or hematuria. Denies symptoms like this in the past. States she is currently on her period. Takes sertraline daily. Denies any allergies to medication. Related Data Home Medications ?Medication ?Instructions ?Recorded ?Confirmed sertraline 100 mg tablet 100 mg PO DAILY Depression/A NXIETY 07/06/19 01/26/21 etonogestrel 0.12 mg-ethinyl 1 each VG ONCE cont rol 11/22/19 01/26/21 estradiol 0.015 mg/24 hr vaginal ring Previous Rx's ?Medication ?Instructions ?Recorded meloxicam 7.5 mg tablet 7.5 mg PO DAILY #30 tabs azithromycin 250 mg tablet 250 mg PO UD DOSE PK #6 tab s 03/04/21 benzonatate 100 mg capsule 100 mg PO TIDP PRN Cough #3 0 caps 03/04/21 cefdinir 300 mg capsule 300 mg PO BID 10 days #20 ca ps 05/17/25 ketorolac 10 mg tablet 10 mg PO Q8H PRN pain 3 days #9 05/17/25 tabs ondansetron 4 mg disintegrating 4 mg PO Q6H PRN nausea and 05/17/25 tablet vomiting #20 tabs tamsulosin 0.4 mg capsule (Flomax) 0.4 mg PO DAILY #7 caps 05/17/25 Allergies Allergy/AdvReac Type Severity Reaction Status Date / Time No Known Allergies Allergy Verified 01/26/21 11:39 PFSH <Josesito Lai MD - Last Filed: 05/17/25 06:48> PFSH Disclaimer: The information contained in this section may have been updated after the patient was seen, as this information can be updated by other users. Social History Smoking Status: Current every day smoker tobacco type: cigarettes packs per day: 1 alcohol intake: never current occupational status: other Travel in the last 8 weeks?: None household members: family housing: house Have you lived/traveled outside [place] in past 30 days?: No Contact w/someone who lives/traveled outside [place] past 30 days?: No Exposure to someone with infectious disease in past 14 days?: No Do you have a fever (greater than 100.4 F or 38 C)?: No Have you tested positive for COVID-19?: No Exposed to someone with COVID-19 in past 14 days?: No Do you have a sore throat?: No Do you have a cough?: No Do you have any weakness?: No Do you have any diarrhea?: No Are you experiencing any unusual bleeding?: No Do you have any muscle aches/pain?: No Do you have any abdominal pain?: Yes Are you experiencing loss of taste or smell?: No Other Medical History Have you received the Flu Vaccine for this season: No Have you received the Pneumonia Vaccine: No <Josesito Lai MD - Last Filed: 05/17/25 06:48> ROS Obtained: Yes Systems reviewed as appropriate & no additional complaints except as documented Per HPI Physical Exam <Josesito Lai MD - Last Filed: 05/17/25 06:48> General General appearance: alert and in no apparent distress Head Head exam: atraumatic and normocephalic Eye Eye exam: Present PERRL and EOMI ENT ENT exam: Present mucous membranes moist Neck Neck exam: Present normal inspection and full ROM Chest Chest inspection: Present symmetric chest wall rise Respiratory Respiratory exam: Present normal lung sounds bilaterally; Absent respiratory distress, wheezes or stridor Cardiovascular Cardiovascular exam: Present regular rate and normal rhythm Abdominal Exam Abdominal exam: Present soft and tenderness (Mild left lower quadrant); Absent distention, guarding, rebound or rigidity Extremities Exam Extremities exam: Present full ROM and normal capillary refill; Absent edema Back Exam Back exam: Present CVA tenderness (L) (Significant); Absent CVA tenderness (R) Neurological Exam Neurological exam: Present alert and oriented X3; Absent motor sensory deficit Psychiatric Psychiatric exam: Present normal affect and normal mood Skin Skin exam: Present warm and dry Medical Decision Making <Josesito Lai MD - Last Filed: 05/17/25 06:48> Medical Records Medical records reviewed: Yes I reviewed the patient's medical records. Screening: Per USPSTF and CDC recommendations, given the prevalence of disease in our region, it is our hospital?s policy to screen for HIV and viral Hepatitis for all patients aged 18 and over and those with ongoing risk factors. Chirag Inquiry Pt receiving controlled substance: No Vital Signs: 05/17/25 06:31 05/17/25 06:46 05/17/25 07:00 Temperature Pulse Rate 61 48 L Pulse Rate [Right] 61 Respiratory Rate 16 Blood Pressure 127/81 118/67 Blood Pressure [Right Arm] 123/78 Blood Pressure Mean [Right Arm] 93 Blood Pressure Source [Right Arm] Automatic Cuff Blood Pressure Position [Right Arm] Sitting 02 Sat by Pulse Oximetry 99 100 100 Oxygen Delivery Method Room Air Room Air 05/17/25 07:30 05/17/25 08:01 05/17/25 08:29 Temperature 98.2 F Pulse Rate 59 L 60 50 L Pulse Rate [Right] Respiratory Rate 16 Blood Pressure 122/86 133/61 133/61 Blood Pressure [Right Arm] Blood Pressure Mean [Right Arm] Blood Pressure Source [Right Arm] Blood Pressure Position [Right Arm] 02 Sat by Pulse Oximetry 100 100 Oxygen Delivery Method Room Air Room Air Lab Data Lab Results 05/17/25 06:40: Urine Color [place], Urine Appearance Cloudy, Urine pH 7.0, Ur Specific [place] 1.020, Urine Protein 2+ A, Urine Glucose (UA) Negative, Urine Ketones Trace, Urine Blood 3+ A, Urine Nitrate Positive A, Urine Bilirubin Negative, Urine Urobilinogen 1.0, Ur Leukocyte Esterase Trace, Urine RBC 50-100, Urine WBC Occasional, Ur Squamous Epith Cells 5-10, Urine Bacteria 2+ 05/17/25 06:42: PT 10.8, INR 0.97, Sodium 138, Potassium 3.6, Chloride 106, Carbon Dioxide 26, Anion Gap 9.6, BUN 10, Creatinine 0.80, Estimated Creat Clear 101, Estimated GFR 82, Est GFR ( Amer) 99, Glucose 109 H, Lactate 1.6, Calcium 9.0, Total Bilirubin 0.5, AST 28, ALT 21, Alkaline Phosphatase 68, Total Protein 6.5, Albumin 4.5, Globulin 2.0, Albumin/Globulin Ratio 2.3 H, Serum HCG, Qual Negative, HCV Ab CINTHIA w/Rflx PCR Qn Negative 05/17/25 06:55: WBC 6.9, RBC 3.82 L, Hgb 12.8, Hct 38.0, MCV 99.5 H, MCH 33.5 H, MCHC 33.7, RDW 12.4, Plt Count 257, MPV 10.4, Neut % (Auto) 65.4, Lymph % (Auto) 26.1, [place] % (Auto) 5.9, Eos % (Auto) 1.6, Baso % (Auto) 0.7, Neut # (Auto) 4.5, Lymph # (Auto) 1.8, [place] # (Auto) 0.4, Eos # (Auto) 0.1, Baso # (Auto) 0.1 05/17/25 06:55 05/17/25 06:42 Orders (Tests/Meds): ED MEDICATIONS Discontinued Medications Generic Name Dose Route Start Last Admin Trade Name Freq PRN Reason Stop Dose Admin Lactated Ringer's 1,000 mls @ 999 mls/hr 05/17/25 06:29 05/17/25 08:08 Lactated Ringer's 1000 Ml Bag IV 05/17/25 07:29 Infused .Q1H1M ONE Infusion Iopamidol 75 ml 05/17/25 07:31 05/17/25 07:33 Iopamidol-370 (76%);100ml Bottle IV 05/17/25 07:32 75 ml ONCE ONE Administration Ketorolac Tromethamine 30 mg 05/17/25 06:29 05/17/25 06:47 Ketorolac 30mg/Ml Vial IV 05/17/25 06:30 30 mg ONCE ONE Administration Ondansetron HCl 4 mg 05/17/25 06:29 05/17/25 06:47 Ondansetron 4mg/2ml Vial IV 05/17/25 06:30 4 mg ONCE ONE Administration Sodium Chloride 10 ml 05/17/25 07:31 05/17/25 07:33 Sodium Chloride 0.9% 10ml Syr (Rad Only) IV 05/17/25 07:32 10 ml ONCE ONE Administration ORDERS Category Date Time Status CT abdomen pelvis w con Stat Cat Scan 05/17/25 06:29 Completed Complete Blood Count Auto Diff Stat Lab 05/17/25 06:55 Completed Comprehensive Metabolic Panel Stat Lab 05/17/25 06:42 Completed HCG Qualitative, Serum Stat Lab 05/17/25 06:42 Completed HIV Combo Stat Lab 05/17/25 06:42 Received Hepatitis C Ab Qual. W/ RFX Stat Lab 05/17/25 06:42 Completed Lactic Acid Stat Lab 05/17/25 06:42 Completed Prothrombin Time INR Stat Lab 05/17/25 06:42 Completed Urinalysis and Microscopic Stat Lab 05/17/25 06:40 Completed Urine Culture Stat Micro 05/17/25 06:40 Received Medical Decision Narrative: In summary, this 34-year-old female presents to the emergency department today with sudden onset left flank pain with associated nausea and vomiting. On initial evaluation patient is hemodynamically stable, afebrile, GCS 15, no neurologic deficits, mild left lower quadrant abdominal pain, significant left CVA tenderness. Brisk capillary refill. Remainder of exam benign. Emesis in the ER is nonbloody, nonbilious. Differential diagnosis includes but is not limited to urolithiasis, hydronephrosis, kidney dysfunction, electrolyte abnormality, dehydration, urinary tract infection, pyelonephritis. I suspect the episode of numbness that affected both hands and both feet was related to emesis and hyperventilation since she does not have any appreciable neurologic deficits on exam and equally affected all extremities which is very reassuring against acute intracranial pathology. Based on these concerns, I ordered hematologic and serum labs, urinalysis, CT abdomen pelvis. Patient received Toradol, Zofran, IV fluids initially for treatment. If her pain is not controlled with Toradol will escalate to narcotics. Patient is comfortable with this plan. Labs, urine, imaging pending at the time of physician handoff. Patient handed off to Dr. Bee in stable condition. <Diego Bee MD - Last Filed: 05/17/25 08:37> Vital Signs: 05/17/25 06:31 05/17/25 06:46 05/17/25 07:00 Temperature Pulse Rate 61 48 L Pulse Rate [Right] 61 Respiratory Rate 16 Blood Pressure 127/81 118/67 Blood Pressure [Right Arm] 123/78 Blood Pressure Mean [Right Arm] 93 Blood Pressure Source [Right Arm] Automatic Cuff Blood Pressure Position [Right Arm] Sitting 02 Sat by Pulse Oximetry 99 100 100 Oxygen Delivery Method Room Air Room Air 05/17/25 07:30 05/17/25 08:01 05/17/25 08:29 Temperature 98.2 F Pulse Rate 59 L 60 50 L Pulse Rate [Right] Respiratory Rate 16 Blood Pressure 122/86 133/61 133/61 Blood Pressure [Right Arm] Blood Pressure Mean [Right Arm] Blood Pressure Source [Right Arm] Blood Pressure Position [Right Arm] 02 Sat by Pulse Oximetry 100 100 Oxygen Delivery Method Room Air Room Air Lab Data Lab Results 05/17/25 06:40: Urine Color [place], Urine Appearance Cloudy, Urine pH 7.0, Ur Specific [place] 1.020, Urine Protein 2+ A, Urine Glucose (UA) Negative, Urine Ketones Trace, Urine Blood 3+ A, Urine Nitrate Positive A, Urine Bilirubin Negative, Urine Urobilinogen 1.0, Ur Leukocyte Esterase Trace, Urine RBC 50-100, Urine WBC Occasional, Ur Squamous Epith Cells 5-10, Urine Bacteria 2+ 05/17/25 06:42: PT 10.8, INR 0.97, Sodium 138, Potassium 3.6, Chloride 106, Carbon Dioxide 26, Anion Gap 9.6, BUN 10, Creatinine 0.80, Estimated Creat Clear 101, Estimated GFR 82, Est GFR ( Amer) 99, Glucose 109 H, Lactate 1.6, Calcium 9.0, Total Bilirubin 0.5, AST 28, ALT 21, Alkaline Phosphatase 68, Total Protein 6.5, Albumin 4.5, Globulin 2.0, Albumin/Globulin Ratio 2.3 H, Serum HCG, Qual Negative, HCV Ab CINTHIA w/Rflx PCR Qn Negative 05/17/25 06:55: WBC 6.9, RBC 3.82 L, Hgb 12.8, Hct 38.0, MCV 99.5 H, MCH 33.5 H, MCHC 33.7, RDW 12.4, Plt Count 257, MPV 10.4, Neut % (Auto) 65.4, Lymph % (Auto) 26.1, [place] % (Auto) 5.9, Eos % (Auto) 1.6, Baso % (Auto) 0.7, Neut # (Auto) 4.5, Lymph # (Auto) 1.8, [place] # (Auto) 0.4, Eos # (Auto) 0.1, Baso # (Auto) 0.1 Orders (Tests/Meds): ED MEDICATIONS Discontinued Medications Generic Name Dose Route Start Last Admin Trade Name Lazaroq PRN Reason Stop Dose Admin Lactated Ringer's 1,000 mls @ 999 mls/hr 05/17/25 06:29 05/17/25 08:08 Lactated Ringer's 1000 Ml Bag IV 05/17/25 07:29 Infused .Q1H1M ONE Infusion Iopamidol 75 ml 05/17/25 07:31 05/17/25 07:33 Iopamidol-370 (76%);100ml Bottle IV 05/17/25 07:32 75 ml ONCE ONE Administration Ketorolac Tromethamine 30 mg 05/17/25 06:29 05/17/25 06:47 Ketorolac 30mg/Ml Vial IV 05/17/25 06:30 30 mg ONCE ONE Administration Ondansetron HCl 4 mg 05/17/25 06:29 05/17/25 06:47 Ondansetron 4mg/2ml Vial IV 05/17/25 06:30 4 mg ONCE ONE Administration Sodium Chloride 10 ml 05/17/25 07:31 05/17/25 07:33 Sodium Chloride 0.9% 10ml Syr (Rad Only) IV 05/17/25 07:32 10 ml ONCE ONE Administration ORDERS Category Date Time Status CT abdomen pelvis w con Stat Cat Scan 05/17/25 06:29 Completed Complete Blood Count Auto Diff Stat Lab 05/17/25 06:55 Completed Comprehensive Metabolic Panel Stat Lab 05/17/25 06:42 Completed HCG Qualitative, Serum Stat Lab 05/17/25 06:42 Completed HIV Combo Stat Lab 05/17/25 06:42 Received Hepatitis C Ab Qual. W/ RFX Stat Lab 05/17/25 06:42 Completed Lactic Acid Stat Lab 05/17/25 06:42 Completed Prothrombin Time INR Stat Lab 05/17/25 06:42 Completed Urinalysis and Microscopic Stat Lab 05/17/25 06:40 Completed Urine Culture Stat Micro 05/17/25 06:40 Received Medical Decision Narrative: In summary, this 34-year-old female presents to the emergency department today with sudden onset left flank pain with associated nausea and vomiting. On initial evaluation patient is hemodynamically stable, afebrile, GCS 15, no neurologic deficits, mild left lower quadrant abdominal pain, significant left CVA tenderness. Brisk capillary refill. Remainder of exam benign. Emesis in the ER is nonbloody, nonbilious. Differential diagnosis includes but is not limited to urolithiasis, hydronephrosis, kidney dysfunction, electrolyte abnormality, dehydration, urinary tract infection, pyelonephritis. I suspect the episode of numbness that affected both hands and both feet was related to emesis and hyperventilation since she does not have any appreciable neurologic deficits on exam and equally affected all extremities which is very reassuring against acute intracranial pathology. Based on these concerns, I ordered hematologic and serum labs, urinalysis, CT abdomen pelvis. Patient received Toradol, Zofran, IV fluids initially for treatment. If her pain is not controlled with Toradol will escalate to narcotics. Patient is comfortable with this plan. Labs, urine, imaging pending at the time of physician handoff. Patient handed off to Dr. Bee in stable condition. Diego Bee MD At the time my assumption of care, plan was to follow up workup for suspected kidney stone. Ultimately, patient's workup showed 3+ urine blood on dipstick with nitrate positivity. Urine microscopy showed trace leukocyte esterase, 50-100 RBCs and occasional white blood cells. 2+ bacteria. CBC shows normal white count of 6.9, normal hemoglobin, platelets within normal limits. Electrolytes on CMP within normal limits. No KHADAR. Negative test. Liver enzymes bilirubin within normal limits. Coagulation studies unremarkable. Patient CT imaging showed a small 3 mm kidney stone in the proximal left ureter just beyond the UPJ. There is mild hydronephrosis of the left kidney. There is also cholelithiasis without evidence of acute cholecystitis. There is hepatomegaly and prominent bilateral ovarian veins with suggest bilateral ovarian vein reflux/incompetence. Could represent pelvic congestion syndrome. On reassessment, patient is completely pain-free and has not had any additional nausea or vomiting since being in the emergency department. I do feel given the size of the patient's kidney stone that this would likely pass on its own. Patient's urine is not definitive for evidence of infection, however in the setting of a renal stone, I do feel that antibiotics are appropriate. patient is eager to get home at this time. Will prescribe cefdinir 300 mg twice daily for 10 days as well as Toradol, Zofran and tamsulosin. I did give patient's strict return precautions for any evidence of worsening infection such as uncontrolled pain or fever and to return to the emergency department immediately if this occurs. I did make patient aware of her cholelithiasis without evidence of cholecystitis. Will refer her to Dr. Virgen for outpatient management. I did encourage her to follow-up with her primary care physician regarding other incidental findings. All questions were answered. She demonstrated understanding and was in agreement with this plan. She was then discharged from the emergency department in stable condition Critical Care <Josesito Lai MD - Last Filed: 05/17/25 06:48> Critical Care Time Critical Care Time: No
--- OUTSIDE RECORDS SUMMARY | 2025-05-17 06:34 | XMS_ITS | Encounter Summary ---
Author Organization Healthcare Address [address] [place] [address] Care Team Providers Care Beam Builder Name Role Phone Lilliana Juarez APRN Primary Care Provider [phone] Reason for Visit * Reason Onset Date Comments Genetic Test Reminder 05/08/2025 Encounter Details Date Type Department Care Team (Late st Contact Info) Description 05/08/2025 Telephone [facility] [address] [place] [phone] Caroline Kasepr Genetic Test Reminder Social History Tobacco Use Types Packs/Day Years Used Date Smoking Tobacco: Every Day Cigarettes 1 10.9 Started: 2014 Passive Smoke Exposure: Past Smokeless Tobacco: Never Alcohol Use Standard Drinks/Week [...] often do you attend chur ch or zoroastrianism services? Never 01/10/2024 Do you belong to any clubs o r organizations such as buddhism groups, unions, fraternal or athletic groups, or [...] you are drinking? Patient does not drink 4 Q3: How often do you have si x or more drinks on one occasion? Never 01/10/2024 PHQ-2 Answer Date Recorded Patient Health Questionnaire-2 Score 0 02/10/2025 [facility] - Occupational Stress Questionnaire Answer Date Recorded [...] exercise at this level? 60 min 01/10/2024 PHQ-9 Answer Date Recorded Patient Health Questionnaire-9 Score 0 02/10/2025 Humiliation, Afraid, Rape, and Kick questionnair e [...] by your partner or ex-partner? No 01/12/2025 AUDIT-C Answer Date Recorded Q1: How often do you have a drink containing alcohol? Never 02/10/2025 Q2: How many drinks containi ng alcohol do you have on a typical day when you are drinking? Patient does not drink 5 Q3: How often do you have si x or more drinks on one occasion? Never 02/10/2025 Hunger Vital Sign Answer Date Recorded Within [...] any time in the past 12 m [facility], were you homeless or living in a custodial (including now)? No 01/12/2025 Safety and Environment [...] the past 12 months has th e [employer], gas, oil, or water [employer] threatened to shut off services in your [...] encounter Miscellaneous Notes * Telephone Encounter - Twila Mckeon - 05/08/2025 1:40 PM EST Genetic Counseling Furnace Caretaker called and LVM reminding patient to collect their saliva kit so their genetic testing can be completed. [facility] also asked if patient would like to switch to a lab draw appointment at the [facility] to please give us a call directly to schedule. documented in this encounter Plan of Treatment Not on file documented as of this encounter Visit Diagnoses Not on filedocumented in this encounter Additional Health Concerns Assessment Noted Time PHQ-9 Depression Total Score: 0 02/11/20 25 8:10 AM EDT A fall risk assessment has been complete d for the patient 01/29/2025 1:58 PM EDT A Body Mass Index follow-up plan has been documented for the patient 02/10/2025 9:15 AM EDT documented as of this encounter Care Teams Beam Builder Relationship Specialty Start Date End Date Lilliana Juarez APRN [address] [place] [id number] PCP - General 11/12/20 documented as of this encounter
--- OUTSIDE RECORDS SUMMARY | 2025-05-17 06:34 | XMS_ITS | Encounter Summary ---
Author Organization Healthcare Address [address] [place] [address] Care Team Providers Care Refrigerated Cargo Clerk Name Role Phone Lilliana Juarez APRN Primary Care Provider [phone] Reason for Visit * Reason Onset Date Comments Genetic Test Reminder 04/16/2025 Encounter Details Date Type Department Care Team (Late st Contact Info) Description 04/16/2025 Telephone [facility] [address] [place] [phone] Caroline Kasper Genetic Test Reminder Social History Tobacco Use [...] often do you attend chur ch or advent services? Never 01/10/2024 Do you belong to any clubs o r organizations such as episcopal groups, unions, fraternal or athletic groups, or [...] Recorded Patient Health Questionnaire-2 Score 0 02/10/2025 [facility] - Occupational Stress Questionnaire Answer Date [...] any time in the past 12 m [facility], were you homeless or living in a intermediate (including now)? No 01/12/2025 Safety and Environment [...] the past 12 months has th e [employer], gas, oil, or water [employer] threatened to shut off services in your [...] * Telephone Encounter - Twila Mckeon - 04/16/2025 12:40 PM EDT Genetic Counseling Turn Supervisor to remind patient to collect their saliva kit so their genetic testingcan be completed, but no answer and mailbox was full. documented in this encounter Plan of Treatment [...] documented as of this encounter Care Teams Refrigerated Cargo Clerk Relationship Specialty Start Date End Date Lilliana Juarez, COOPER [address] [place] [address] PCP - General 11/12/20 documented as of this encounter
--- OUTSIDE RECORDS SUMMARY | 2025-05-17 06:34 | XMS_ITS | Encounter Summary ---
Author Organization [facility] Address [address] [place] [address] Care Team Providers Care Road Patcher Name Role Phone Lilliana Juarez WOODWORKER HELPER Primary Care Provider [phone] Reason for Visit * Reason Onset Date Comments HCN - Patient Message 02/25/2025 Encounter Details Date Type Department Care Team (Late st Contact Info) Description 02/25/2025 Telephone [facility] Medicine [address] [place] [address] Lilliana Juarez APRN [address] [place] [address] HCN - Patient Message Social History Tobacco Use Types Packs/Day Years [...] week 01/10/2024 How often do you attend [facility] or latter day services? Never 01/10/2024 Do you belong to any clubs o r organizations such as jewish groups, unions, fraternal or athletic groups, or [...] Recorded Patient Health Questionnaire-2 Score 0 02/10/2025 [facility] - Occupational Stress Questionnaire Answer Date [...] any time in the past 12 m [facility], were you homeless or living in a [place] health care facility (including now)? No 01/12/2025 Safety and Environment [...] encounter Miscellaneous Notes * Telephone Encounter - Beatriz James - 02/25/2025 11:14 AM EDT Faxed, clinic aware * Telephone Encounter - Nini Dela Cruz - 02/25/2025 10:59 AM EDT Clinical Concern/Question Reason for Call: Claudia calling because they received the referral for pt but they are needing thyroid labs sent over [facility]. Fax [phone]. Pt is currently in office. Please advise. Best contact number: Other: [phone] Optimal time of day to reach caller: ANYTIME Additional comments/information from caller: None Note: Please do not reply to this message. Follow-up communication and further actions as a result of this message need to be communicated with the patient directly, if the patient is not active onMyChart. If the patient is active on MyChart, they will receive notification of the communication/outcome via [employer]. documented in this encounter Plan of Treatment [...] documented as of this encounter Care Teams Road Patcher Relationship Specialty Start Date End Date Lilliana Juarez APRN [address] [place] [address] PCP - General 11/12/20 documented as of this encounter
--- OUTSIDE RECORDS SUMMARY | 2025-05-17 06:34 | XMS_ITS | Encounter Summary ---
Author Organization Healthcare Address [address] [place] [address] Care Team Providers Care Looseleaf Binder Coverer Name Role Phone Lilliana Juarez TRAVEL REGISTERED NURSE ONCOLOGY Primary Care Provider [phone] Encounter Details Date Type Department Care Team (Late st Contact Info) Description 02/06/2025 Results Follow-Up [facility] [address] [place] [address] Lilliana Juarez APRN [address] [place] [address] Social History Tobacco Use Types Packs/Day Years Used Date Smoking Tobacco: Every Day Cigarettes 1 10.9 Started: 2014 Smokeless Tobacco: Never Alcohol Use [...] How often do you attend chur or christianity services? Never 01/10/2024 Do you belong to any clubs o r organizations such as anabaptism groups, unions, fraternal or athletic groups, or [...] Recorded Patient Health Questionnaire-2 Score 0 02/10/2025 [facility] - Occupational Stress [...] time in the past 12 m [facility], were you homeless or living in a group home (including now)? No 01/12/2025 Safety and Environment [...] as of this encounter Functional Status * AUDIT-C Score Answer Date of Assessment Author 0 02/10/2025 8:09 AM EDT Keshia Rodriguez * Question Answer Date of Assessment Author Q1: How often do you have a drink containing alcohol? Never 02/10/2025 8:09 AM EDT Jenifer Mejia Q2: How many drinks containing alcohol do you have on a typical day when you are drinking? Patient does not drink 02/10/2025 8:09 AM EDT Keshia Mejia Q3: How often do you have six or more drinks on one occasion? Never 02/10/2025 8:09 AM EDT Jenifer Mejia * Over the past 2 weeks, how often have you been bothered by any of the following problems? Question Answer Date of Assessment Author Little interest or pleasure in doing things Not at all 02/10/2025 8:10 AM EDT Jenifer Mejia Feeling down, depressed, or hopeless Not at all 02/10/2025 8:10 AM EDT Jenifer Mejia Patient Health Questionnaire-2 Score 0 02/10/2025 8:10 AM EDT Montez Mejia * Question Answer Date of Assessment Author Trouble falling or staying asleep, or sleeping too much Not at all 02/10/2025 8:10 AM EDT Keshia Jeronimo Feeling tired or having little energy Not at all 02/10/2025 8:10 AM EDT Jenifer Mejia Poor appetite or overeating Not at all 02/10/2025 8: 10 AM ELVIST Keshia Mejia Feeling bad about yourself - or that you are a failure or have let yourself or your family down Not at all 02/10/2025 8:10 AM EDT Jenifer Mejia Trouble concentrating on things, such as reading the newspaper or watching television Not at all 02/10/2025 8:10 AM EDT Jenifer Mejia Moving or speaking so slowly that other people could have noticed? Or the opposite - being so fidgety or restless that you have been moving around a lot more than usual. Not at all 02/10/2025 8:10 AM EDT Keshia Martinez L Thoughts that you would be better off or hurting yourself in some way Not at all 02/10/2025 8:10 AM EDT Tana Mejia ica L Patient Health Questionnaire-9 Score 0 02/10/2025 8:10 AM EDT Montez Mejia * Calculated C-SSRS Risk Score (Lifetime/Recent) Answer Date of Assessment Author No Risk Indicated 02/10/2025 8:12 AM EDT Tana Martinezica L * How difficult have these problems made it for you to do your work, take care of things at home, or get along with other people? Answer Date of Assessment Author Not difficult at all 02/10/2025 8:10 AM EDT Keshia Ghosh L * Question Answer Date of Assessment Author 1. Wish to be (Past 1 Month) No 02/10/2025 8:12 AM EDT Jenifer Mejia L 2. Non-Specific Active Suici elmer Thoughts (Past 1 Month) No 02/10/2025 8:12 AM EDT Tana Mejiaica L 6. Suicidal Behavior (Lifetime) No 8:12 AM EDT Keshia Mejia L documented as of this encounter Miscellaneous Notes * Telephone Encounter - Fauzia Adams LPN - 02/06/2025 2:48 PM EDT Referral placed. documented in this encounter Plan of Treatment Not on file documented as of this encounter Visit Diagnoses Not on filedocumented in this encounter Additional Health Concerns Assessment Noted Time PHQ-9 Depression Total Score: 0 01/30/20 25 1:58 PM EDT A fall risk assessment has been complete d for the patient 01/29/2025 1:58 PM EDT A Body Mass Index follow-up plan has been documented for the patient 01/29/2025 2:26 PM EDT documented as of this encounter Care Teams Looseleaf Binder Coverer Relationship Specialty Start Date End Date Lilliana Juarez APRN [address] [place] [phone] PCP - General 11/12/20 documented as of this encounter
--- OUTSIDE RECORDS SUMMARY | 2025-05-17 06:34 | XMS_ITS | Encounter Summary ---
Author Organization [facility] Address [address] [place] [address] Care Team Providers Care Production Sorter Name Role Phone Lilliana Juarez PARTS COUNTER REPRESENTATIVE Primary Care Provider [phone] Reason for Visit * Reason Onset Date Comments HCN - Patient Message 02/17/2025 Encounter Details Date Type Department Care Team (Late st Contact Info) Description 02/17/2025 Telephone [facility] [address] [place] [address] Lilliana Juarez APRN [address] [place] [address] HCN - Patient Message Social [...] week 01/10/2024 How often do you attend [facility] or zoroastrian services? Never 01/10/2024 Do you belong to any clubs o r organizations such as religion groups, unions, fraternal or athletic groups, or [...] Recorded Patient Health Questionnaire-2 Score 0 02/10/2025 [facility] - Occupational Stress Questionnaire Answer [...] any time in the past 12 m [facility], were you homeless or living in a halfway (including now)? No 01/12/2025 Safety and Environment [...] * Telephone Encounter - Beatriz James - 02/17/2025 9:28 AM EDT Faxed * Telephone Encounter - Nini Dela Cruz - 02/17/2025 9:00 AM EDT Clinical Concern/Question Reason for Call: Claudia calling because they received the referral but they are needing the FNA screening done if office has record of that. Please advise. Fax number [phone]. Best contact number: Other: [phone] Optimal time of day to reach caller: ANYTIME Additional comments/information from caller: None Note: Please do not reply to this message. Follow-up communication and further actions as a result of this message need to be communicated with the patient directly, if the patient is not active onMyChart. If the patient is active on MyChart, they will receive notification of the communication/outcome via [employer]. documented in this encounter Plan of Treatment [...] documented as of this encounter Care Teams Production Sorter Relationship Specialty Start Date End Date Lilliana Juarez APRN [address] [place] [address] PCP - General 11/12/20 documented as of this encounter
--- OUTSIDE RECORDS SUMMARY | 2025-05-17 06:34 | XMS_ITS | Clinical Summary ---
Author Organization [facility] Address [address] [place] [address] Care Team Providers Care Central Melt Specialist Name Role Phone Lilliana Juarez APRN Primary Care Provider [phone] Allergies No known active allergies Medications sertraline (Zoloft) 100 MG tabletIndicatio ns:Generalized anxiety disorder Take 2 tablets by mouth daily. 180 tablet 3 02/10/2025 Active propranolol (Inderal) 10 MG tabletIndicatio ns:Generalized anxiety disorder Take 1 tablet by mouth 3 times a day. 60 tablet 5 02/10/2025 Active Active Problems Problem Noted Date Diagnosed Date Frequent headaches 02/09/2020 Anxiety 02/07/2019 Pain in both wrists 02/07/2019 Encounter for control 01/09/2019 Resolved Problems Problem Noted Date Diagnosed Date Resolved Date Encounter for supervision of normal 04/19/20 18 03/22/2025 Encounters Date Type Department Care Team Description 05/08/2025 Telephone [facility] [address] [address] [facility] [place] [address] Caroline Kasper Genetic Test Reminder 04/16/2025 Telephone [facility] [address] [place] [address] Caroline Kasper Genetic Test Reminder 02/25/2025 Telephone [facility] [address] [place] [address] Lilliana Juarez APRN HCN - Patient Message 02/20/2025 Telephone [facility] [address] [place] [address] Caroline Kasper 02/19/2025 Travel 02/17/2025 1:15 PM EDT Clinical Support [facility] [address] [place] [address] Caroline Kasper Encounter for nonprocreative genetic counseling (Primary Dx) 02/17/2025 Travel 02/17/2025 Telephone [facility] [address] [place] [address] Lilliana Juarez, COOPER HCN - Patient Message from Last 3 Months Immunizations Immunization Administration [...] Lung cancer Maternal Grandfather Breast cancer Mother MW Cancer Mother MW Hypertension Mother MW Depression Mother's Sister RH Asthma Son 1 GW Allergic rhinitis Son 2 Relation Name Status Comments Maternal Grandfather Mother MW Mother's Sister RH Son 1 GW Son 2 Social History Tobacco Use Types [...] often do you attend chur ch or evangelical services? Never 01/10/2024 Do you belong to any clubs o r organizations such as lutheran groups, unions, fraternal or athletic groups, or [...] Recorded Patient Health Questionnaire-2 Score 0 02/10/2025 [facility] - Occupational Stress Questionnaire Answer Date Recorded [...] any time in the past [address] [facility], were you homeless or living in [...] Sign Reading Time Taken Comments Blood Pressure 127/67 01/29/2025 1:57 PM EDT Pulse 69 01/29/2025 1:57 PM EDT Temperature 37.2 C (98.9 F) 01/29/2025 1:57 PM EDT Respiratory Rate 18 01/12/2025 1:45 PM EDT Oxygen Saturation 98% 01/29/2025 1:57 PM EDT Inhaled Oxygen Concentration - - Weight 67.6 kg (149 lb) 02/10/2025 8:08 AM EDT Height 172.7 cm (5' 8 ) 02/10/2025 8:08 AM EDT Body Mass Index 22.66 02/10/2025 8:08 AM EDT Plan of Treatment Health Maintenance Due Date Last Done Comments [facility]-Infant/Child/Adol SDOH Screenings 1990 [facility]-Pneumococcal Vaccine: Pediatrics (0 to 5 Years) and At-Risk Patients (6 to 49 Years) (2 of 2 - PPSV23, PCV20, or PCV21) 06/20/2013 04/25/2013 [facility]-IPV Vaccines (3 of 3 - 4-dose series) 10/24/2013 04/25/2013, 08/29/1995 HPV Vaccines (1 - 3-dose SCDM series) 2017 [facility]-Varicella Vaccines (1 of 2 - 13+ 2-dose series) 12/28/2018 [facility]-DTaP,Tdap,and Td Vaccines (4 - Td or Tdap) 04/25/2023 04/25/2013, 03/14/2006, 08/29/1995 [id number] Vaccine (3 - 2024- season) 2025 09/02/2021, 08/10/2021 [facility]-Influenza Vaccine (#1) 2025 05/09/2022, [facility]- SDOH Screenings 07/15/2025 [facility]-Adult SDOH Screenings 07/15/2025 01/12/2025 [facility]-Depression Screening 02/10/2026 02/10/2025, 0808/2024 [facility]-Pap Smear 01/27/2027 01/28/2024 [facility]-Cervical Cancer Screening [...] Procedure Name Priority Date/Time Associated Diagnosis Comments REFERRED THINPREP PAP AND HPV (SO) Routine 01/28/2024 11:58 AM EDT Encounter for annual routine gynecological examination HEPATITIS C ANTIBODY W/REFLEX TO HCV QUANT PCR Routine 04/19/2018 10:17 AM EDT HIV 1/2 ANTIBODY/ANTIGEN SCREEN WITH REFLEX TO HIV I/II DIFFERENTIATION Routine 04/19/2018 10:17 AM EDT from Last 3 Months or Most Recently Relevant to Health Maintenance Results * Referred ThinPrep Pap and HPV (SO) (01/28/2024 11:58 AM EDT) Pap, Source Cx/Vagina 02/07/2024 10:40 AM EDT [facility] [facility] [employer] EER Referred ThinPrep Pap and HPV See Note 02/07/2024 10:40 AM EDT [facility] [facility] [employer] PAP, THINPREP Normal 02/07/2024 10:40 AM EDT [facility] [facility] [employer] High Risk HPV Normal 02/07/2024 10:40 AM EDT [facility] [facility] [employer] Swab Vaginal and cervical cytologic material / Unknown Non-blood Collection / Unknown 01/28/2024 11:58 AM EDT 01/28/2024 12:50 PM EDT Narrative [facility]) - 02/07/2024 10:40 AM EDT Authorized individuals can access the [employer] Enhanced Report using the following link: [email or web address] Performed By: [facility] [address] [place] [address] Technology Applications Consultant: Edi Razo MD, PhD CLIA Number: [id number] SPECIMEN PART A. Cervical, Endocervical, Vaginal, ThinPrep Pap (Manager Maintenance) CYTOLOGY HX Date of Last Menstrual Period: N FINAL DIAGNOSIS INTERPRETATION: Negative for Intraepithelial Lesion or Malignancy. SPECIMEN ADEQUACY:Satisfactory for evaluation. Endocervical/transformation zone component present. Electronically Signed Out : Colette Garcia Performed by: [facility] [address] [place] [address] [place] [id number] Lilliana Galan MD, HR-HPV: Negative Test performed by the FDA-approved Hologic (Gen-Probe) APTIMA HPV test, which detects HPV genotypes: 16, 18, 31, 33, 35, 39, 45, 51, 52, 56, 58, 59, 66, and 68. Performed by: [facility] [address] [place] [address] [place] [id number] Lilliana Galan MD, Canelo Oliva MD LAB REF LAB BLOOD AND FLUID ORD Final Result [facility]) [address] [place] [id number] * HIV 1 & 2 Antibody/Antigen Screen (04/19/2018 10:17 AM EDT) HIV 1 Result NONREACTIVE Screening for HIV 1 and 2 antibodies is NONREACTIVE. No confirmatory testing is required. SUNQUEST 04/19/2018 10:1 7 AM EDT 04/19/2018 12:54 PM EDT [facility] Provider LAB BLOOD ORDERABLES Final R esult SUNQUEST * Hepatitis C Antibody (04/19/2018 10:17 AM EDT) Hepatitis C Antibody NEGATIVE Reference Range: Negative SUNQUEST 04/19/2018 10:1 7 AM EDT 04/19/2018 12:54 PM EDT [facility] Provider LAB BLOOD ORDERABLES Final R esult Performing Organization Address City/[facility] Co de Phone Number SUNQUEST from Last 3 Months or Most Recently Relevant to Health Maintenance Insurance [facility] MEDICAID [place] Care Teams Central Melt Specialist Relationship Specialty Start Date End Date Lilliana Juarez [place] [address] PCP - General 11/12/20
--- OUTSIDE RECORDS SUMMARY | 2025-05-17 06:35 | XMS_ITS | Encounter Summary ---
Author Organization [facility] Address [address] [place] [address] Care Team Providers Care Hand Tool Lapper Name Role Phone Lilliana Juarez APRN Primary Care Provider [phone] Reason for Visit * Reason Comments Med Refill Encounter Details Date Type Department Care Team (Late st Contact Info) Description 12/04/2024 Refill [facility] [address] [place] [address] Falguni Ochoa MD [address] [place] [address] Social History Tobacco Use Types [...] How often do you attend chur or denominational services? Never 01/10/2024 Do you belong to any clubs o r organizations such as bahai groups, unions, fraternal or athletic groups, or [...] Recorded Patient Health Questionnaire-2 Score 6 10/15/2024 [facility] - Occupational Stress Questionnaire Answer Date [...] place to sleep or slept in a residential (including now)? No 01/10/2024 PHQ-9 Answer Date [...] in the past [address] [facility], were you homeless or living in a residential (including now)? No 10/14/2024 Safety and Environment [...] f/u in 3 weeks. Also sent a [employer] message. documented in this encounter Plan of [...] documented as of this encounter Care Teams Hand Tool Lapper Relationship Specialty Start Date End Date Lilliana Juarez APRN [address] [place] [phone] PCP - General 11/12/20 documented as of this encounter
--- OUTSIDE RECORDS SUMMARY | 2025-05-17 06:35 | XMS_ITS | Encounter Summary ---
Author Organization Healthcare Address [address] [place] [address] Care Team Providers Care Biodiesel Plant Manager Name Role Phone Lilliana Juarez APRN Primary Care Provider [phone] Encounter Details Date Type Department Care Team (Late st Contact Info) Description 02/04/2025 Outside Procedure External Location [address] [place] [address] Lilliana Juarez, GIS ENGINEER [address] [place] [address] Social History Tobacco Use Types [...] often do you attend chur ch or baptism services? Never 01/10/2024 Do you belong to any clubs o r organizations such as zoroastrianism groups, unions, fraternal or athletic groups, or [...] Date Recorded Patient Health Questionnaire-2 Score 0 01/29/2025 [facility] - Occupational Stress Questionnaire Answer Date Recorded [...] Date Recorded Patient Health Questionnaire-9 Score 0 01/29/2025 Humiliation, Afraid, Rape, and Kick questionnair e [...] as of this encounter Plan of Treatment Not on file documented as of this encounter Procedures Procedure Name Priority Date/Time Associated Diagnosis Comments US GUIDED NEEDLE PLACEMENT 02/04/2025 7:34 AM EDT documented in this encounter Results * US Guided Needle Placement (02/04/2025 7:34 AM EDT) Anatomical Region Laterality Modality Ultrasound 02/04/2025 7:34 AM EDT Narrative 02/04/2025 3:32 PM EDT [id number] [place] [address] Name: ANABELLE LANDAVERDE Exam Date: 02/04/2025 : 1990 Age 34 years Gender: F Physician: LILLIANA JUAREZ Facility: [facility] Facility HSV: Outpatient Exam: US GUIDE NEEDLE PLACMENT EXAM DESCRIPTION: Ultrasound guided Biopsy, Ultrasound-guided thyroid fine-needle aspiration Attending Physician: Dr. Simón Faulkner M.D. Performed by: TYE Menon. CLINICAL INDICATION: TI-Rad 3 nodule that meets criteria for FNA biopsy. COMPARISON: Thyroid US 01/20/2025 ANESTHESIA: Lidocaine 1% buffered with sodium bicarbonate, subcutaneous, for a total of 4 ml. CONSENT: The procedure was initially discussed with the patient. Risks and benefits were addressed. Written informed consent was obtained. PROCEDURE: Procedural pause was performed for patient identification, patient site, and procedure. The patient's left neck was interrogated with identification of a large nodule in the superior/middle left thyroid. The neck was prepped and draped in sterile fashion. Under ultrasound guidance, the skin and subcutaneous soft tissues overlying the area of interest were anesthetized with 1% lidocaine buffered with sodium bicarbonate. Under ultrasound guidance, 4 fine needle aspirations using 25-gauge needles were obtained. Ultrasound images demonstrate the needles entering the area of concern.The obtained specimens were submitted to the nurse in attendance who placed them in the appropriate containers to be sent to pathology.There were no immediate complications and the patient tolerated the procedure well. Hemostasis was achieved with manual compression. A Band-Aid was applied to the site. Permanent images of the procedure are maintained in the patient's medical record. IMPRESSION: Successful ultrasound-guided fine-needle aspiration of thyroid nodule within the superior/middle pole of the left thyroid lobe. Final pathologic results pending. Electronically signed by: Simón Faulkner MD 02/04/2025 03:27 PM EDT Dictated By: Simón Faulkner Transcribed By: Transcribed On: 02/04/2025 3:27 PM Electronically signed by: Simón Faulkner 02/04/2025 Thank you for referring ANABELLE LANDAVERDE to [facility]. Legally authenticated by JAY HERNÁNDEZ 2025-02-04 15:27:47 Procedure Note Provider, [facility] [place] - 02/04/2025 [facility] [address] [place] [address] Name: ANABELLE LANDAVERDE Exam Date: 02/04/2025 : 1990 Age 34 years Gender: F Physician: LILLIANA JUAREZ Facility: [facility] Facility HSV: Outpatient Exam: US GUIDE NEEDLE PLACMENT EXAM DESCRIPTION: Ultrasound guided Biopsy, Ultrasound-guided thyroid fine-needle aspiration Attending Physician: Dr. Simón Faulkner M.D. Performed by: TYE Menon. CLINICAL INDICATION: TI-Rad 3 nodule that meets criteria for FNA biopsy. COMPARISON: Thyroid US 01/20/2025 ANESTHESIA: Lidocaine 1% buffered with sodium bicarbonate, subcutaneous,for a total of 4 ml. CONSENT: The procedure was initially discussed with the patient. Risksand benefits were addressed. Written informed consent was obtained. PROCEDURE: Procedural pause was performed for patient identification,patient site, and procedure. The patient's left neck was interrogated with identification of a largenodule in the superior/middle left thyroid. The neck was prepped and draped in sterile fashion. Under ultrasound guidance, the skin and subcutaneous soft tissuesoverlying the area of interest were anesthetized with 1% lidocaine buffered withsodium bicarbonate. Under ultrasound guidance, 4 fine needle aspirations using 25-gauge needles were obtained. Ultrasound images demonstrate theneedles entering the area of concern.The obtained specimens were submitted tothe nurse in attendance who placed them in the appropriate containers to besent to pathology.There were no immediate complications and the patienttolerated the procedure well. Hemostasis was achieved with manual compression. A Band-Aid was applied to the site. Permanent images of the procedure are maintained in the patient's medical record. IMPRESSION: Successful ultrasound-guided fine-needle aspiration of thyroid nodulewithin the superior/middle pole of the left thyroid lobe. Final pathologicresults pending. Electronically signed by: Simón Faulkner MD 02/04/2025 03:27 PM EDT RP Dictated By: Simón Faulkner Transcribed By: Transcribed On: 02/04/2025 3:27 PM Electronically signed by: Simón Faulkner 02/04/2025 Thank you for referring ANABELLE LANDAVERDE to [facility]. Legally authenticated by JAY HERNÁNDEZ 2025-02-04 15:27:47 us Lilliana Juarez APRN IMG US PROCEDURES Final Resul t documented in this encounter Visit Diagnoses Not on filedocumented [...] documented as of this encounter Care Teams Biodiesel Plant Manager Relationship Specialty Start Date End Date Lilliana Juarez APRN [address] [place] [id number] PCP - General 11/12/20 documented as of this encounter
[2025-05-17 06:43] LABS: Microscopic, Urine URINE MICROSCOPIC (MICROSCOPIC)
[2025-05-17] MEDS: LACTATED RINGERS 1000ML 1,000 ML 999 ML IV (06:43)
[2025-05-17 06:46] VITALS: BP 127/81; PULSE 61; O2SAT 100
[2025-05-17] MEDS: KETOROLAC 30MG/ML VIAL 30 MG IV (06:47)
[2025-05-17] MEDS: ONDANSETRON 4MG/2ML VIAL 4 MG IV (06:47)
[2025-05-17 06:51] LABS: Bilirubin,Urine Negative (Negative); Color,Urine ORANGE (Yellow); Glucose,Urine (UA) Negative (Negative); Ketones,Urine TRACE (Negative); Leukocyte Esterase,Urine TRACE (Negative); PH,Urine 7.0 (5.0-8.5); Protein,Urine 2+ (Negative); Specific Gravity, Urine 1.020 (1.005-1.030); Urobilinogen,Urine 1.0 EU/dl (0.2)
[2025-05-17 07:00] VITALS: BP 118/67; PULSE 48; O2SAT 100
[2025-05-17 07:03] LABS: HCG Qualitative, Serum Negative (Negative)
[2025-05-17 07:06] LABS: Hematocrit 38.0 % (37.0-47.0); Hemoglobin 12.8 g/dL (12.2-16.2); Immature Granulocytes % 0.3 %; Mean Corpuscular HGB Conc 33.7 g/dL (31.8-35.4); Mean Corpuscular Hemoglobin 33.5 pg (27.0-31.2); Mean Corpuscular Volume 99.5 fl (81-99); Nucleated Red Blood Cells % 0 %; Platelet Count 257 K/mm3 (142-424); Red Blood Count 3.82 M/mm3 (4.20-5.40); Red Cell Distribution Width-SD 45.3 fL; White Blood Count 6.9 K/mm3 (4.8-10.8)
[2025-05-17 07:07] LABS: Alanine Aminotransferase 21 U/L (12-78); Albumin Level 4.5 g/dl (3.5-5.0); Albumin/Globulin Ratio 2.3 (1.1-1.8); Alkaline Phosphatase 68 U/L (38-126); Anion Gap 9.6 mEq/L (5-15); Aspartate Amino Transferase 28 U/L (14-36); Bilirubin,Total 0.5 mg/dl (0.2-1.3); Blood Urea Nitrogen 10 mg/dl (7-17); Calcium 9.0 mg/dl (8.4-10.2); Carbon Dioxide 26 mmol/L (22.0-30.0); Chloride 106 mmol/L (98-107); Creatinine Clearance Estimated 101 mL/min (50-200); Creatinine,Serum 0.80 mg/dl (0.52-1.04); Estimated Glomerular Filt Rate 82 ml/min (>60); GFR (African American) 99 ML/MIN (>60); Globulin 2.0 g/dL (1.3-3.2); Glucose 109 mg/dl (74-100); Potassium 3.6 mmoL/L (3.5-5.1); Sodium 138 mmol/L (136-145); Total Protein,Serum 6.5 g/dl (6.3-8.2)
[2025-05-17 07:09] LABS: Bacteria,Urine 2+ /lpf; RBC,Urine 50-100 #/hpf (0-3); WBC,Urine Occasional #/hpf (0-3)
[2025-05-17 07:09] LABS: INR 0.97 (0.9-1.1); Prothrombin Time 10.8 seconds (10.1-12.5)
[2025-05-17 07:30] VITALS: BP 122/86; PULSE 59; O2SAT 100
[2025-05-17] MEDS: SODIUM CHLORIDE 0.9% 10ML SYR (RAD ONLY) 10 ML IV (07:33)
[2025-05-17] MEDS: IOPAMIDOL-370 (76%);100ML BOTTLE 75 ML IV (07:33)
[2025-05-17 07:58] LABS: Hepatitis C Ab Qual. W/ RFX NEGATIVE (Negative)
[2025-05-17 08:01] VITALS: BP 133/61; PULSE 60; O2SAT 100
[2025-05-17 08:29] VITALS: BP 133/61; PULSE 50; RESP 16; TEMP 36.8; O2SAT 100
== END 2025-05-17 08:51 | disposition home or self-care (01) ==
PROVIDERS: Emergency Provider Emergency Medicine; PCP Nurse Practitioner Family
DX: K80.20 Calculus of gallbladder without cholecystitis without obstruction (principal); N20.1 Calculus of ureter
CPT/HCPCS: 74177; 80053; 81001; 83605; 84703; 85025; 85610; 86803; 87086; 87389; 96361; 96374; 96375; 99285; J1885; J2405; J7120; Q9967